=== PATIENT | male | born 1945 | race Caucasian/White ===

== ENCOUNTER → 2016-06-30 | Outpatient (CLI) | payer MEDICARE, BC | END | disposition home or self-care (01) | LOC: MW.CHFP 08:17 | PROVIDERS: ATTEND Emergency Medicine | DX: I10 Essential (primary) hypertension (principal); E11.9 Type 2 diabetes mellitus without complications; Z79.4 Long term (current) use of insulin | CPT/HCPCS: 36415; 80048; 83036; G0463 ==

== ENCOUNTER → 2016-09-26 | Outpatient (CLI) | payer MEDICARE, BC | LOC: MW.CHFP 08:00 | PROVIDERS: ATTEND Emergency Medicine | DX: NODX10 (principal) ==

== ENCOUNTER → 2016-09-27 | Outpatient (CLI) | payer MEDICARE, BC | LOC: MW.CHFP 09:56 | PROVIDERS: ATTEND Emergency Medicine | DX: E11.9 Type 2 diabetes mellitus without complications (principal); I10 Essential (primary) hypertension; Z79.4 Long term (current) use of insulin; G47.00 Insomnia, unspecified; Z96.41 Presence of insulin pump (external) (internal) | CPT/HCPCS: 36415; 80048; 83036; 99214 ==

== ENCOUNTER 2016-10-30 20:36 | Observation (INO) | payer MEDICARE, BC ==
[2016-10-30] MEDS ORDERED: Aspirin 81 MG Tab.Chew PO ONE (20:53)
[2016-10-30] MEDS ORDERED: Ketorolac 30 MG/ML SDV IVPUSH ONE (20:53)
[2016-10-30] MEDS ORDERED: Sodium Chloride 0.9% 2.5 ML Syringe FLUSH PRN ×2 (20:53)
[2016-10-30] MEDS ORDERED: Nitroglycerin 2% Oint 1 GM UD Packet TOP ONE (20:53)
[2016-10-30] MEDS ORDERED: Famotidine 20 MG/2 ML SDV IVPUSH ONE (20:53)
[2016-10-30] MEDS ORDERED: Alum Hydrox/Mag Hydrox/Simeth 15 ML, Metoclopramide 5 MG, Lidocaine 2% 5 ML PO ONE ×3 (20:53)
[2016-10-30] MEDS ORDERED: Nitroglycerin 0.4 MG Tab.SL SL ONE (20:53)
[2016-10-30] MEDS ORDERED: Sodium Chloride 0.9% 10 ML Syringe FLUSH PRN (20:53)
--- NOTE | 2016-10-30 21:39 | EDM.PDOC ---
ED HPI GENERAL MEDICAL PROBLEM - General Chief Complaint: Cardiovascular Problem Stated Complaint: CHEST PAIN Time Seen by Provider: 10/30/16 20:45 Source of Information: Reports: Patient, Family History Limitations: Reports: No Limitations - History of Present Illness INITIAL COMMENTS - FREE TEXT/NARRATIVE: History of present illness: 71-year-old male presenting with complaints of chest pain and pressure. Patient indicates it started this afternoon he was uncertain of the time but got progressively worse when his made him come in. Review of systems: As per history of present illness and below otherwise all systems reviewed and negative. Past medical history: As per history of present illness and as reviewed below otherwise noncontributory. Surgical history: As per history of present illness and as reviewed below otherwise noncontributory. Social history: No reported history of drug or alcohol abuse. Family history: As per history of present illness and as reviewed below otherwise noncontributory. Physical exam: HEENT: Atraumatic, normocephalic, pupils reactive, negative for conjunctival pallor or scleral icterus, mucous membranes moist, throat clear, neck supple, nontender, trachea midline. Lungs: Clear to auscultation, breath sounds equal bilaterally, chest nontender. Heart: S1S2, regular, negative for clicks, rubs, or JVD. Abdomen: Soft, nondistended, nontender. Negative for masses or hepatosplenomegaly. Negative for costovertebral tenderness. Pelvis: Stable nontender. Genitourinary: Deferred. Rectal: Deferred. Extremities: Atraumatic, negative for cords or calf pain. Neurovascular unremarkable. Neuro: Awake, alert, oriented. Cranial nerves II through XII unremarkable. Cerebellum unremarkable. Motor and sensory unremarkable throughout. Exam nonfocal. Global assessment is benign save the subjective complaint of chest pain as noted in the history of present illness Patient indicated that he had more pressure than the pain and he was hypertensive on arrival Nitroglycerin 0.5" of NTG paste Diagnostics: [CBC, CMP, lipase, amylase, troponin] Therapeutics: [IV fluid, nitroglycerin] Impression: [Chest pain] Plan: [Admit for OBS with tele] Definitive disposition and diagnosis as appropriate pending reevaluation and review of above. Left Chest Pain Score (Numeric/FACES): 4 - Related Data Allergies Allergy/AdvReac Type Severity Reaction Status Date / Time No Known Allergies Allergy Verified 10/30/16 21:04 Home Meds: Home Meds Clopidogrel Bisulfate [Clopidogrel] 75 mg PO DAILY 05/13/14 [History] Metoprolol Tartrate [Lopressor] 50 mg PO BID 05/13/14 [History] Pramipexole [Mirapex] 0.25 mg PO BEDTIME 05/13/14 [History] Trandolapril [Mavik] 4 mg PO DAILY 05/13/14 [History] atorvaSTATin [Lipitor] 40 mg PO DAILY 05/13/14 [History] Insulin Lispro [HumaLOG] 50 - 60 unit SUBCUT QIDACANDBED 05/01/15 [History] Isosorbide Mononitrate [Imdur] 30 mg PO DAILY 05/01/15 [History] Subcutaneous Insulin Pump [Insulin Pump] 1 each MC 05/01/15 [History] Furosemide [Lasix] 20 mg PO DAILY 7 Days 01/23/16 [Rx] Potassium Chloride 10 meq PO DAILY 7 Days 01/23/16 [Rx] Past Medical History HEENT History: Reports: None Cardiovascular History: Reports: CAD, High Cholesterol, Hypertension, [place] Respiratory History: Reports: None Gastrointestinal History: Reports: None Genitourinary History: Reports: None Musculoskeletal History: Reports: None Neurological History: Reports: CVA Psychiatric History: Reports: None Endocrine/Metabolic History: Reports: Diabetes, Type II Hematologic History: Reports: None Immunologic History: Reports: None Oncologic (Cancer) History: Reports: None Dermatologic History: Reports: None - Infectious Disease History Infectious Disease History: Reports: Chicken Pox, Measles, Mumps - Past Surgical History Head Surgeries/Procedures: Reports: None Cardiovascular Surgical History: Reports: Coronary Artery Bypass, Coronary Artery Stent Social & Family History - Family History Family Medical History: Unobtainable - Tobacco Use Smoking Status *Q: Never Smoker Years of Tobacco use: 20 Second Hand Smoke Exposure: No - Alcohol Use Days Per Week of Alcohol Use: 0 - Recreational Drug Use Recreational Drug Use: No ED ROS GENERAL - Review of Systems Review Of Systems: See Below (See history of present illness) ED EXAM, GENERAL - Physical Exam Exam: See Below (See history of present illness) Course - Vital Signs Last Recorded V/S: Last Vital Signs Temp 36.5 C 10/30/16 21:01 Pulse 67 10/30/16 21:27 Resp 17 10/30/16 21:27 BP 145/68 H 10/30/16 21:27 Pulse Ox 100 10/30/16 21:27 - Orders/Labs/Meds Orders: Active Orders 24 hr Category Date Time Status Cardiac Monitoring [RC] . DIRECTED Care 10/30/16 20:53 Active EKG Documentation Completion [RC] STAT Care 10/30/16 20:53 Active Chest 2V [CR] Stat Exams 10/30/16 20:53 Ordered Sodium Chloride 0.9% [Saline Flush] Med 10/30/16 20:53 Active 10 ml FLUSH ASDIRECTED PRN Sodium Chloride 0.9% [Saline Flush] Med 10/30/16 20:53 Active 2.5 ml FLUSH ASDIRECTED PRN Sodium Chloride 0.9% [Saline Flush] Med 10/30/16 20:53 Active 2.5 ml FLUSH ASDIRECTED PRN Saline Lock Insert [OM.PC] Stat Oth 10/30/16 20:53 Ordered Medication Orders Sodium Chloride (Saline Flush) 2.5 ml FLUSH ASDIRECTED PRN PRN Reason: Keep Vein Open Last Admin: 10/30/16 21:19 Dose: 2.5 ml Sodium Chloride (Saline Flush) 10 ml FLUSH ASDIRECTED PRN PRN Reason: Keep Vein Open Last Admin: 10/30/16 21:15 Dose: 10 ml Sodium Chloride (Saline Flush) 2.5 ml FLUSH ASDIRECTED PRN PRN Reason: Keep Vein Open Last Admin: 10/30/16 21:22 Dose: 2.5 ml Labs: Laboratory Tests 10/30/16 10/30/16 10/30/16 Range/Units 20:54 20:54 20:54 WBC 6.71 (4.0-11.0) K/uL RBC 4.45 L (4.50-5.90) M/uL Hgb 14.0 (13.0-17.0) g/dL Hct 40.1 (38.0-50.0) % MCV 90.1 (80.0-98.0) fL MCH 31.5 (27.0-32.0) pg MCHC 34.9 (31.0-37.0) g/dL RDW Std Deviation 44.4 (28.0-62.0) fl RDW Coeff of Thuy 13 (11.0-15.0) % Plt Count 154 (150-400) K/uL MPV 11.10 (7.40-12.00) fL Neut % (Auto) 74.1 (48.0-80.0) % Lymph % (Auto) 15.4 L (16.0-40.0) % [place] % (Auto) 8.0 (0.0-15.0) % Eos % (Auto) 2.1 (0.0-7.0) % Baso % (Auto) 0.4 (0.0-1.5) % Neut # (Auto) 5.0 (1.4-5.7) K/uL Lymph # (Auto) 1.0 (0.6-2.4) K/uL [place] # (Auto) 0.5 (0.0-0.8) K/uL Eos # (Auto) 0.1 (0.0-0.7) K/uL Baso # (Auto) 0.0 (0.0-0.1) K/uL Nucleated RBC % 0.0 /100WBC Nucleated RBCs # 0 K/uL Sodium 138 (136-146) mmol/L Potassium 4.4 (3.5-5.1) mmol/L Chloride 106 (98-110) mmol/L Carbon Dioxide 23 (21-31) mmol/L BUN 26 H (6.0-23.0) mg/dL Creatinine 1.5 (0.6-1.5) mg/dL Est Cr Clr Drug Dosing 36.88 mL/min Estimated GFR (MDRD) 46.3 ml/min Glucose 85 (60-110) mg/dL Calcium 9.3 (8.8-10.8) mg/dL Total Bilirubin 0.3 (0.1-1.5) mg/dL AST 16 (5-40) IU/L ALT 18 (8-54) IU/L Alkaline Phosphatase 61 (40-150) Troponin I < 0.10 (0.0-0.29) NG/ML Total Protein 6.8 (6.0-8.0) g/dL Albumin 4.1 (3.4-4.8) g/dL Globulin 2.7 (2.0-3.5) g/dL Albumin/Globulin Ratio 1.5 (1.3-2.8) Amylase 25 (10-90) U/L Lipase 22 (7-80) U/L Meds: Medications Generic Name Dose Route Start Last Admin Trade Name Freq PRN Reason Stop Dose Admin Sodium Chloride 2.5 ml 10/30/16 20:53 10/30/16 21:19 Saline Flush FLUSH 2.5 ml ASDIRECTED PRN Administration Keep Vein Open Sodium Chloride 10 ml 10/30/16 20:53 10/30/16 21:15 Saline Flush FLUSH 10 ml ASDIRECTED PRN Administration Keep Vein Open Sodium Chloride 2.5 ml 10/30/16 20:53 10/30/16 21:22 Saline Flush FLUSH 2.5 ml ASDIRECTED PRN Administration Keep Vein Open Discontinued Medications Generic Name Dose Route Start Last Admin Trade Name Chaitanyaq PRN Reason Stop Dose Admin Aspirin 324 mg 10/30/16 20:53 10/30/16 21:15 Aspirin PO 10/30/16 20:54 324 mg ONETIME ONE Administration Al Hydroxide/Mg Hydroxide 15 0 ml 10/30/16 20:53 10/30/16 21:16 ml/ Metoclopramide HCl 5 mg/ PO 10/30/16 20:54 25 each Lidocaine HCl 5 ml ONETIME ONE Administration Famotidine 20 mg 10/30/16 20:53 10/30/16 21:19 Pepcid IVPUSH 10/30/16 20:54 20 mg ONETIME ONE Administration Ketorolac Tromethamine 30 mg 10/30/16 20:53 10/30/16 21:19 Toradol IVPUSH 10/30/16 20:54 30 mg ONETIME ONE Administration Nitroglycerin 0.5 gm 10/30/16 20:53 10/30/16 21:26 Nitro-Bid 2% TOP 10/30/16 20:54 0.5 gm ONETIME ONE Administration Nitroglycerin 0.4 mg 10/30/16 20:53 Nitrostat SL 10/30/16 20:54 ONETIME ONE Departure - Departure Time of Disposition: 21:51 Disposition: Refer to Observation Condition: good Clinical Impression: Chest pain - My Orders Last 24 Hours: My Active Orders 10/30/16 20:53 Cardiac Monitoring [RC] . DIRECTED EKG Documentation Completion [RC] STAT Chest 2V [CR] Stat Sodium Chloride 0.9% [Saline Flush] 10 ml FLUSH ASDIRECTED PRN Sodium Chloride 0.9% [Saline Flush] 2.5 ml FLUSH ASDIRECTED PRN Sodium Chloride 0.9% [Saline Flush] 2.5 ml FLUSH ASDIRECTED PRN Saline Lock Insert [OM.PC] Stat - Assessment/Plan Last 24 Hours: My Active Orders 10/30/16 20:53 Cardiac Monitoring [RC] . DIRECTED EKG Documentation Completion [RC] STAT Chest 2V [CR] Stat Sodium Chloride 0.9% [Saline Flush] 10 ml FLUSH ASDIRECTED PRN Sodium Chloride 0.9% [Saline Flush] 2.5 ml FLUSH ASDIRECTED PRN Sodium Chloride 0.9% [Saline Flush] 2.5 ml FLUSH ASDIRECTED PRN Saline Lock Insert [OM.PC] Stat
--- NOTE | 2016-10-30 22:41 | PCM.HP ---
H&P History of Present Illness - History of Present Illness Initial Comments - Free Text/Narative: 71 yo male with pmh of CAD and DM who presents with one day history of chest pain. He reports substernal chest pressure that is associated with shortness of breath. He was evaluated in the ED with EKG and cardiac enzymes which were negative for signs of ischemia. BP was noted to be 201/87. He was given GI cocktail and nitropaste with resolution of chest pain. Left Chest Pain Score (Numeric/FACES): 4 - Related Data Allergies/Adverse Reactions: Allergies Allergy/AdvReac Type Severity Reaction Status Date / Time No Known Allergies Allergy Verified 10/30/16 21:04 Home Medications: Home Meds Clopidogrel Bisulfate [Clopidogrel] 75 mg PO DAILY 05/13/14 [History] Metoprolol Tartrate [Lopressor] 50 mg PO BID 05/13/14 [History] Pramipexole [Mirapex] 0.25 mg PO BEDTIME 05/13/14 [History] Trandolapril [Mavik] 4 mg PO DAILY 05/13/14 [History] atorvaSTATin [Lipitor] 40 mg PO DAILY 05/13/14 [History] Insulin Lispro [HumaLOG] 50 - 60 unit SUBCUT QIDACANDBED 05/01/15 [History] Isosorbide Mononitrate [Imdur] 30 mg PO DAILY 05/01/15 [History] Subcutaneous Insulin Pump [Insulin Pump] 1 each MC 05/01/15 [History] Furosemide [Lasix] 20 mg PO DAILY 7 Days 01/23/16 [Rx] Potassium Chloride 10 meq PO DAILY 7 Days 01/23/16 [Rx] Past Medical History HEENT History: Reports: None Cardiovascular History: Reports: CAD, High Cholesterol, Hypertension, [place] Respiratory History: Reports: None Gastrointestinal History: Reports: None Genitourinary History: Reports: None Musculoskeletal History: Reports: None Neurological History: Reports: CVA Psychiatric History: Reports: None Endocrine/Metabolic History: Reports: Diabetes, Type II Hematologic History: Reports: None Immunologic History: Reports: None Oncologic (Cancer) History: Reports: None Dermatologic History: Reports: None - Infectious Disease History Infectious Disease History: Reports: Chicken Pox, Measles, Mumps - Past Surgical History Head Surgeries/Procedures: Reports: None Cardiovascular Surgical History: Reports: Coronary Artery Bypass, Coronary Artery Stent Social & Family History - Family History Family Medical History: Unobtainable - Tobacco Use Smoking Status *Q: Never Smoker Years of Tobacco use: 20 Second Hand Smoke Exposure: No - Alcohol Use Days Per Week of Alcohol Use: 0 - Recreational Drug Use Recreational Drug Use: No H&P Review of Systems - Review of Systems: Review Of Systems: See Below General: Reports: No Symptoms HEENT: Reports: No Symptoms Pulmonary: Reports: No Symptoms Cardiovascular: Reports: No Symptoms Gastrointestinal: Reports: No Symptoms Genitourinary: Reports: No Symptoms Musculoskeletal: Reports: No Symptoms Skin: Reports: No Symptoms Psychiatric: Reports: No Symptoms Neurological: Reports: No Symptoms Hematologic/Lymphatic: Reports: No Symptoms Immunologic: Reports: No Symptoms Exam - Exam Exam: See Below - Vital Signs Vital Signs: Last Vital Signs Temp 36.5 C 10/30/16 21:01 Pulse 67 10/30/16 21:27 Resp 17 10/30/16 21:27 BP 145/68 H 10/30/16 21:40 Pulse Ox 100 10/30/16 21:27 Weight: 83.2 kg - Exam General: Alert, Oriented, 4 HEENT: Mucosa Moist & [place] Neck: No: JVD Lungs: Clear to Auscultation, Normal Respiratory Effort Cardiovascular: Regular Rate, Regular Rhythm Abdomen: Soft. No: Tenderness Extremities: Normal Inspection Skin: Warm, Dry, Intact - Patient Data Result Diagrams: 10/30/16 20:54 10/30/16 20:54 *Q Meaningful Use (ADM) - VTE *Q VTE Criteria *Q: - Stroke *Q Stroke Criteria *Q: - AMI *Q AMI Criteria *Q: Problem List Initiated/Reviewed/Updated: Yes Orders Last 24hrs: Active Orders 24 hr Category Date Time Status Antiembolic Devices [RC] PER UNIT ROUTINE Care 10/30/16 22:38 Ordered Blood Glucose Check, Bedside [RC] QIDACANDBED Care 10/30/16 22:37 Ordered Intake and Output [RC] QSHIFT Care 10/30/16 22:37 Ordered Oxygen Therapy [RC] PRN Care 10/30/16 22:37 Ordered Up ad Sarah [RC] ASDIRECTED Care 10/30/16 22:37 Ordered VTE/DVT Education [RC] PER UNIT ROUTINE Care 10/30/16 22:37 Ordered Vital Signs [RC] Q4H Care 10/30/16 22:37 Ordered [place] [employer] Diet [DIET] Diet 10/30/16 Breakfast Ordered TROPONIN I [CHEM] Q6H Lab 10/31/16 03:00 Ordered TROPONIN I [CHEM] Q6H Lab 10/31/16 09:00 Ordered Clopidogrel [Plavix] Med 10/31/16 09:00 Ordered 75 mg PO DAILY Enoxaparin [Lovenox] Med 10/31/16 09:00 Ordered 40 mg SUBCUT DAILY Furosemide [Lasix] Med 10/31/16 09:00 Ordered 20 mg PO DAILY Isosorbide Mononitrate [Imdur] Med 10/31/16 09:00 Ordered 30 mg PO DAILY Metoprolol Tartrate [Lopressor] Med 10/31/16 09:00 Ordered 50 mg PO BID Pramipexole [Mirapex] Med 10/31/16 21:00 Ordered 0.25 mg PO BEDTIME Subcutaneous Insulin Pump [Insulin Pump] Med 10/30/16 22:45 Ordered 1 each ASDIRECTED Trandolapril [Mavik] Med 10/31/16 09:00 Ordered 4 mg PO DAILY atorvaSTATin [Lipitor] Med 10/31/16 09:00 Ordered 40 mg PO DAILY Sequential Compression Device [OM.PC] Per Unit Routine Oth 10/30/16 22:37 Ordered Resuscitation Status Routine Resus Stat 10/30/16 22:37 Ordered Medication Orders Atorvastatin Calcium (Lipitor) 40 mg PO DAILY ISHMAEL Clopidogrel Bisulfate (Plavix) 75 mg PO DAILY ISHMAEL Furosemide (Lasix) 20 mg PO DAILY ISHMAEL Isosorbide Mononitrate (Imdur) 30 mg PO DAILY ISHMAEL Metoprolol Tartrate (Lopressor) 50 mg PO BID ISHMAEL Non-Formulary Medication (Trandolapril [Mavik]) 4 mg PO DAILY ISHMAEL Non-Formulary Medication (Subcutaneous Insulin Pump [Insulin Pump]) 1 each ASDIRECTED ISHMAEL Pramipexole Dihydrochloride (Mirapex) 0.25 mg PO BEDTIME ISHMAEL Sodium Chloride (Saline Flush) 2.5 ml FLUSH ASDIRECTED PRN PRN Reason: Keep Vein Open Last Admin: 10/30/16 21:19 Dose: 2.5 ml Sodium Chloride (Saline Flush) 10 ml FLUSH ASDIRECTED PRN PRN Reason: Keep Vein Open Last Admin: 10/30/16 21:15 Dose: 10 ml Sodium Chloride (Saline Flush) 2.5 ml FLUSH ASDIRECTED PRN PRN Reason: Keep Vein Open Last Admin: 10/30/16 21:22 Dose: 2.5 ml Assessment/Plan Comment:: 71 yo male who presents with chest pain. He was ruled out for acute coronary syndorme with serial negative cardiac enzymes He had no events on telemetry overnight. His imdur was increased to 60mg daily. He was discharged home to follow up with Dr. Trevizo.
[2016-10-30] MEDS ORDERED: SUBCUTANEOUS INSULIN PUMP MC SCH (22:45)
[2016-10-31] MEDS ORDERED: Enoxaparin 40 MG/0.4 ML Syringe SUBCUT SCH (09:00)
[2016-10-31] MEDS ORDERED: atorvaSTATin 40 MG Tab PO SCH (09:00)
[2016-10-31] MEDS ORDERED: Isosorbide Mononitrate 30 MG Tab.ER PO SCH (09:00)
[2016-10-31] MEDS ORDERED: TRANDOLAPRIL 4 MG PO SCH (09:00)
[2016-10-31] MEDS ORDERED: Clopidogrel 75 MG Tab PO SCH (09:00)
[2016-10-31] MEDS ORDERED: Metoprolol Tartrate 50 MG Tab PO SCH (09:00)
[2016-10-31] MEDS ORDERED: Furosemide 20 MG Tab PO SCH (09:00)
--- NOTE | 2016-10-31 11:48 | CR ---
EXAM DATE: 10/30/16 PATIENT'S AGE: 71 Patient: MONIQUE HUERTAS Facility: [place], [place] Site . Site : [id number] Study: XRay Chest [id number] 9:55:07 PM Ordering Physician: Doctor Brandt Final Report: CHEST 2 VIEWS INDICATION: Chest pain COMPARISON: 01/23/2016. IMPRESSION: Normal heart size and vascular pattern. Lungs are clear. No pneumothorax or pleural abnormality. No overall change Stable changes of previous midline sternotomy. Stable calcified nodule right lung base. Stable multiple previous healed left-sided posterior rib fractures. Coronary arterial stent is again noted on the lateral view. Dictated by Raghavendra Vallejo MD @ Oct 30 2016 10:03PM (Electronic Signature) Report Signed by Proxy. ANABELLE
[2016-10-31 12:05] VITALS: BP 146/72
[2016-10-31] MEDS ORDERED: Pramipexole 0.25 MG Tab PO SCH (21:00)
== END 2016-10-31 13:54 | disposition home or self-care (01) ==
LOC: MW.ED 20:36 → MW.MS 22:15
PROVIDERS: ADMIT Internal Medicine; ATTEND Internal Medicine
DX: R07.89 Other chest pain (principal); I25.10 Atherosclerotic heart disease of native coronary artery without angina pectoris; E11.9 Type 2 diabetes mellitus without complications; I10 Essential (primary) hypertension; I25.2 Old myocardial infarction; E78.00 Pure hypercholesterolemia, unspecified; Z79.4 Long term (current) use of insulin; Z79.02 Long term (current) use of antithrombotics/antiplatelets; Z79.899 Other long term (current) drug therapy; Z86.73 Personal history of transient ischemic attack (TIA), and cerebral infarction without residual deficits; Z95.1 Presence of aortocoronary bypass graft; Z95.5 Presence of coronary angioplasty implant and graft
CPT/HCPCS: 71020; 80053; 82150; 82962; 83690; 84484; 85025; 93005; 96372; 96374; 96375; 99285; A9270; G0378; J1650; J1885

== ENCOUNTER 2017-05-01 01:24 | Observation (INO) | payer MEDICARE, BC ==
[2017-05-01] MEDS ORDERED: Sodium Chloride 0.9% 10 ML Syringe FLUSH PRN (01:43)
[2017-05-01] MEDS ORDERED: Sodium Chloride 0.9% 2.5 ML Syringe FLUSH PRN (01:43)
--- NOTE | 2017-05-01 01:53 | EDM.PDOC ---
ED HPI GENERAL MEDICAL PROBLEM - General Chief Complaint: Diabetic Complaint Stated Complaint: AMBULANCE Time Seen by Provider: 05/01/17 01:29 - History of Present Illness INITIAL COMMENTS - FREE TEXT/NARRATIVE: HISTORY AND PHYSICAL: History of present illness: Patient is a 72-year-old male with a history of insulin dependent diabetes for which she is on insulin pump, hypercholesterolemia hypertension and a CABG who follows with Dr. Trevizo in our primary care clinic as well as with our sql ssis developer; he presents via EMS after his found him on the living room floor and he was noted to have a low blood sugar. The story is very confusing as the patient says that over the last few weeks his blood sugar has been running on the high side and he has worked with the educator to adjust his insulin via insulin pump. He tells me that he took his blood sugar last according to his pump at 5 PM and last gave himself insulin at 5 PM, almost 9 hours ago. The says that at 10:30 she was going to bed and he was given a check his blood sugar and be right behind but she fell asleep and when she woke up she noted that the patient was on the floor in the living room. EMS was called and his blood sugar at that time on their arrival was 45. He was given D50 via IV and his blood sugar went up to 224 and the patient was more alert and oriented. The patient tells me that he does not recall checking his blood sugar before his went to bed or after and he is not even sure how he got into the living room. It is unclear to me exactly how long he has been on the floor. The patient currently in the ED denies any systemic complaints of fever chills cough chest pain or shortness of breath has no head neck or back pain no extremity complaints no abdominal pain and has had no nausea or vomiting. He isn 't passing his urine normally and does not have any diarrhea or bowel movement issues. When asked the patient to query insulin pump he does confirm that the last time he gave himself a bolus of insulin was at 5 PM. He seems to struggle with trying to figure out how to get that information and also struggles with seeing the insulin home and the reading on it. Patient's Accu-Chek on arrival here was 120 which is a 50% drop from when EMS rechecked it after the D50. According to the patient is a basilar rate adjust throughout the day increasing slowly and he boluses himself depending on his blood sugars throughout the day. On my discussion with this patient it seems unclear of his ability to adjust his insulin appropriately and his and him are not the best historians regarding his diabetic care. Review of systems: As per history of present illness and below otherwise all systems reviewed and negative. Past medical history: As per history of present illness and as reviewed below otherwise noncontributory. Surgical history: As per history of present illness and as reviewed below otherwise noncontributory. Social history: No reported history of drug or alcohol abuse. Family history: As per history of present illness and as reviewed below otherwise noncontributory. Physical exam: General: Well-developed well-nourished man who is nontoxic and speaking clearly and easily in the ED. The muscle extremities and vital signs on a by me HEENT: Atraumatic except there is a small superficial abrasion at the top of the patient's scalp that any palpable bony deformities or gross defects , normocephalic, pupils reactive, negative for conjunctival pallor or scleral icterus, mucous membranes moist, throat clear, neck supple, nontender, trachea midline. Lungs: Clear to auscultation, breath sounds equal bilaterally, chest nontender. Heart: S1S2, regular rate and rhythm no overt murmurs Abdomen: Soft, nondistended, nontender. Negative for masses or hepatosplenomegaly. Negative for costovertebral tenderness. insulin pump is seen at the left of the umbilicus on the abdomen Pelvis: Stable nontender. Genitourinary: Deferred. Rectal: Deferred. Extremities: Atraumatic, negative for cords or calf pain. Neurovascular unremarkable. patient has full range of motion without any defects or deficits other no palpable bony deformities or soft tissue swelling is appreciated Neuro: Awake, alert, oriented. Cranial nerves II through XII unremarkable. Cerebellum unremarkable. Motor and sensory unremarkable throughout. Exam nonfocal. back: There are no midline step-offs in his defects of the thoracic or lumbar spine no soft tissue injuries are appreciated and no posterior rib or posterior pelvis tenderness. Skin: There is no evidence of diaphoresis rashes or lesions and turgor is normal Diagnostics: EKG CBC CMP UA hemoglobin A1c INR troponin CT scan of the head chest x-ray [employer]: IV O2 monitor I requested the patient shut off his insulin pump while he is here in the department Repeat Accu-Chek was 83 despite the patient's insulin pump being off. We will give him something to drink and at 03 20 3 AM I spoke with Dr. Nelson our hospitalist who agrees with observation admission for syncope and reevaluation of his diabetic management as this is the likely precipitant of his syncopal event. Throughout the course of the patient's stay in the ED when I have asked him about his diabetic adjustments with his insulin pump it seems to be unclear what the sql ssis developer and him have been doing. Impression: Syncope with hypoglycemia, rule out mal-dosing of insulin Definitive disposition and diagnosis as appropriate pending reevaluation and review of above. - Related Data Allergies Allergy/AdvReac Type Severity Reaction Status Date / Time No Known Allergies Allergy Verified 10/30/16 21:04 Home Meds: Home Meds Clopidogrel Bisulfate [Clopidogrel] 75 mg PO DAILY 05/13/14 [History] Metoprolol Tartrate [Lopressor] 50 mg PO BID 05/13/14 [History] Pramipexole [Mirapex] 0.25 mg PO BEDTIME 05/13/14 [History] Trandolapril [Mavik] 4 mg PO DAILY 05/13/14 [History] atorvaSTATin [Lipitor] 40 mg PO DAILY 05/13/14 [History] Insulin Lispro [HumaLOG] 50 - 60 unit SUBCUT QIDACANDBED 05/01/15 [History] Subcutaneous Insulin Pump [Insulin Pump] 1 each MC ASDIRECTED 05/01/15 [History] Isosorbide Mononitrate [Imdur] 60 mg PO DAILY #30 tab.er 10/31/16 [Rx] Past Medical History HEENT History: Reports: None Cardiovascular History: Reports: CAD, High Cholesterol, Hypertension, HI Respiratory History: Reports: None Gastrointestinal History: Reports: None Genitourinary History: Reports: None Musculoskeletal History: Reports: None Neurological History: Reports: CVA Psychiatric History: Reports: None Endocrine/Metabolic History: Reports: Diabetes, Type II Hematologic History: Reports: None Immunologic History: Reports: None Oncologic (Cancer) History: Reports: None Dermatologic History: Reports: None - Infectious Disease History Infectious Disease History: Reports: Chicken Pox, Measles, Mumps - Past Surgical History Head Surgeries/Procedures: Reports: None Cardiovascular Surgical History: Reports: Coronary Artery Bypass, Coronary Artery Stent Social & Family History - Family History Family Medical History: Unobtainable - Tobacco Use Smoking Status *Q: Never Smoker Years of Tobacco use: 20 Second Hand Smoke Exposure: No - Caffeine Use Caffeine Use: Reports: Coffee - Alcohol Use Days Per Week of Alcohol Use: 0 - Recreational Drug Use Recreational Drug Use: No ED ROS GENERAL - Review of Systems Review Of Systems: ROS reveals no pertinent complaints other than HPI. ED EXAM GENERAL NO PERIP PULSE - Physical Exam Exam: See Below (See dictation) Course - Vital Signs Last Recorded V/S: Last Vital Signs Temp 35.5 C 05/01/17 01:33 Pulse 64 05/01/17 03:11 Resp 12 05/01/17 03:11 BP 155/76 H 05/01/17 03:11 Pulse Ox 94 L 05/01/17 03:11 - Orders/Labs/Meds Orders: Active Orders 24 hr Category Date Time Status Blood Glucose Check, Bedside [RC] ONETIME Care 05/01/17 01:42 Active Cardiac Monitoring [RC] . DIRECTED Care 05/01/17 01:42 Active Communication Order [RC] STAT Care 05/01/17 01:43 Active EKG Documentation Completion [RC] STAT Care 05/01/17 01:42 Active Oxygen Therapy, ED [RC] ASDIRECTED Care 05/01/17 01:41 Active Pulse Oximetry [RC] ASDIRECTED Care 05/01/17 01:42 Active Chest 1V Frontal [CR] Stat Exams 05/01/17 01:43 Taken Head wo Cont [CT] Stat Exams 05/01/17 01:43 Taken Sodium Chloride 0.9% [Saline Flush] Med 05/01/17 01:43 Active 10 ml FLUSH ASDIRECTED PRN Sodium Chloride 0.9% [Saline Flush] Med 05/01/17 01:43 Active 2.5 ml FLUSH ASDIRECTED PRN Saline Lock Insert [OM.PC] Stat Oth 05/01/17 01:41 Ordered Medication Orders Sodium Chloride (Saline Flush) 10 ml FLUSH ASDIRECTED PRN PRN Reason: Keep Vein Open Sodium Chloride (Saline Flush) 2.5 ml FLUSH ASDIRECTED PRN PRN Reason: Keep Vein Open Labs: Laboratory Tests 05/01/17 05/01/17 05/01/17 Range/Units 01:30 01:30 01:30 WBC 8.88 (4.0-11.0) K/uL RBC 4.75 (4.50-5.90) M/uL Hgb 15.1 (13.0-17.0) g/dL Hct 49.9 (38.0-50.0) % MCV 105.1 H (80.0-98.0) fL MCH 31.8 (27.0-32.0) pg MCHC 30.3 L (31.0-37.0) g/dL RDW Std Deviation 54.8 (28.0-62.0) fl RDW Coeff of Thuy 14 (11.0-15.0) % Plt Count 110 L (150-400) K/uL MPV 12.80 H (7.40-12.00) fL Neut % (Auto) 86.2 H (48.0-80.0) % Lymph % (Auto) 7.9 L (16.0-40.0) % Larue % (Auto) 5.6 (0.0-15.0) % Eos % (Auto) 0.2 (0.0-7.0) % Baso % (Auto) 0.1 (0.0-1.5) % Neut # (Auto) 7.7 H (1.4-5.7) K/uL Lymph # (Auto) 0.7 (0.6-2.4) K/uL Larue # (Auto) 0.5 (0.0-0.8) K/uL Eos # (Auto) 0.0 (0.0-0.7) K/uL Baso # (Auto) 0.0 (0.0-0.1) K/uL Nucleated RBC % 0.0 /100WBC Nucleated RBCs # 0 K/uL INR 1.02 (0.86-1.11) Sodium 136 (136-146) mmol/L Potassium 3.7 (3.5-5.1) mmol/L Chloride 102 (98-110) mmol/L Carbon Dioxide 23 (21-31) mmol/L BUN 19 (6.0-23.0) mg/dL Creatinine 1.4 (0.6-1.5) mg/dL Est Cr Clr Drug Dosing 38.95 mL/min Estimated GFR (MDRD) 50.0 ml/min Glucose 117 H (60-110) mg/dL POC Glucose (60-110) mg/dL Hemoglobin A1c (0.0-6.0) % Calcium 9.7 (8.8-10.8) mg/dL Total Bilirubin 0.3 (0.1-1.5) mg/dL AST 17 (5-40) IU/L ALT 16 (8-54) IU/L Alkaline Phosphatase 60 (40-150) Creatine Kinase (9-236) IU/L Troponin I < 0.10 (0.0-0.29) NG/ML Total Protein 7.6 (6.0-8.0) g/dL Albumin 4.3 (3.4-4.8) g/dL Globulin 3.3 (2.0-3.5) g/dL Albumin/Globulin Ratio 1.3 (1.3-2.8) Urine Color Urine Appearance Urine pH (5.0-8.0) Ur Specific Kelliher (1.001-1.035) Urine Protein (NEGATIVE) mg/dL Urine Glucose (UA) (NEGATIVE) mg/dL Urine Ketones (NEGATIVE) mg/dL Urine Occult Blood (NEGATIVE) Urine Nitrite (NEGATIVE) Urine Bilirubin (NEGATIVE) Urine Urobilinogen (<2.0) EU/dL Ur Leukocyte Esterase (NEGATIVE) Urine RBC (0-2/HPF) Urine WBC (0-5/HPF) Ur Epithelial Cells (NONE-FEW) Urine Bacteria (NEGATIVE) 05/01/17 05/01/17 05/01/17 Range/Units 01:30 01:30 01:55 WBC (4.0-11.0) K/uL RBC (4.50-5.90) M/uL Hgb (13.0-17.0) g/dL Hct (38.0-50.0) % MCV (80.0-98.0) fL MCH (27.0-32.0) pg MCHC (31.0-37.0) g/dL RDW Std Deviation (28.0-62.0) fl RDW Coeff of Thuy (11.0-15.0) % Plt Count (150-400) K/uL MPV (7.40-12.00) fL Neut % (Auto) (48.0-80.0) % Lymph % (Auto) (16.0-40.0) % Larue % (Auto) (0.0-15.0) % Eos % (Auto) (0.0-7.0) % Baso % (Auto) (0.0-1.5) % Neut # (Auto) (1.4-5.7) K/uL Lymph # (Auto) (0.6-2.4) K/uL Larue # (Auto) (0.0-0.8) K/uL Eos # (Auto) (0.0-0.7) K/uL Baso # (Auto) (0.0-0.1) K/uL Nucleated RBC % /100WBC Nucleated RBCs # K/uL INR (0.86-1.11) Sodium (136-146) mmol/L Potassium (3.5-5.1) mmol/L Chloride (98-110) mmol/L Carbon Dioxide (21-31) mmol/L BUN (6.0-23.0) mg/dL Creatinine (0.6-1.5) mg/dL Est Cr Clr Drug Dosing mL/min Estimated GFR (MDRD) ml/min Glucose (60-110) mg/dL POC Glucose (60-110) mg/dL Hemoglobin A1c 8.7 H (0.0-6.0) % Calcium (8.8-10.8) mg/dL Total Bilirubin (0.1-1.5) mg/dL AST (5-40) IU/L ALT (8-54) IU/L Alkaline Phosphatase (40-150) Creatine Kinase 113 (9-236) IU/L Troponin I (0.0-0.29) NG/ML Total Protein (6.0-8.0) g/dL Albumin (3.4-4.8) g/dL Globulin (2.0-3.5) g/dL Albumin/Globulin Ratio (1.3-2.8) Urine Color YELLOW Urine Appearance CLEAR Urine pH 6.0 (5.0-8.0) Ur Specific Kelliher 1.015 (1.001-1.035) Urine Protein 30 (NEGATIVE) mg/dL Urine Glucose (UA) 100 H (NEGATIVE) mg/dL Urine Ketones NEGATIVE (NEGATIVE) mg/dL Urine Occult Blood TRACE-LYSED (NEGATIVE) Urine Nitrite NEGATIVE (NEGATIVE) Urine Bilirubin NEGATIVE (NEGATIVE) Urine Urobilinogen 0.2 (<2.0) EU/dL Ur Leukocyte Esterase NEGATIVE (NEGATIVE) Urine RBC 0-1 (0-2/HPF) Urine WBC NONE SEEN (0-5/HPF) Ur Epithelial Cells RARE (NONE-FEW) Urine Bacteria RARE (NEGATIVE) 05/01/17 Range/Units 03:10 WBC (4.0-11.0) K/uL RBC (4.50-5.90) M/uL Hgb (13.0-17.0) g/dL Hct (38.0-50.0) % MCV (80.0-98.0) fL MCH (27.0-32.0) pg MCHC (31.0-37.0) g/dL RDW Std Deviation (28.0-62.0) fl RDW Coeff of Thuy (11.0-15.0) % Plt Count (150-400) K/uL MPV (7.40-12.00) fL Neut % (Auto) (48.0-80.0) % Lymph % (Auto) (16.0-40.0) % Larue % (Auto) (0.0-15.0) % Eos % (Auto) (0.0-7.0) % Baso % (Auto) (0.0-1.5) % Neut # (Auto) (1.4-5.7) K/uL Lymph # (Auto) (0.6-2.4) K/uL Larue # (Auto) (0.0-0.8) K/uL Eos # (Auto) (0.0-0.7) K/uL Baso # (Auto) (0.0-0.1) K/uL Nucleated RBC % /100WBC Nucleated RBCs # K/uL INR (0.86-1.11) Sodium (136-146) mmol/L Potassium (3.5-5.1) mmol/L Chloride (98-110) mmol/L Carbon Dioxide (21-31) mmol/L BUN (6.0-23.0) mg/dL Creatinine (0.6-1.5) mg/dL Est Cr Clr Drug Dosing mL/min Estimated GFR (MDRD) ml/min Glucose (60-110) mg/dL POC Glucose 83 (60-110) mg/dL Hemoglobin A1c (0.0-6.0) % Calcium (8.8-10.8) mg/dL Total Bilirubin (0.1-1.5) mg/dL AST (5-40) IU/L ALT (8-54) IU/L Alkaline Phosphatase (40-150) Creatine Kinase (9-236) IU/L Troponin I (0.0-0.29) NG/ML Total Protein (6.0-8.0) g/dL Albumin (3.4-4.8) g/dL Globulin (2.0-3.5) g/dL Albumin/Globulin Ratio (1.3-2.8) Urine Color Urine Appearance Urine pH (5.0-8.0) Ur Specific Kelliher (1.001-1.035) Urine Protein (NEGATIVE) mg/dL Urine Glucose (UA) (NEGATIVE) mg/dL Urine Ketones (NEGATIVE) mg/dL Urine Occult Blood (NEGATIVE) Urine Nitrite (NEGATIVE) Urine Bilirubin (NEGATIVE) Urine Urobilinogen (<2.0) EU/dL Ur Leukocyte Esterase (NEGATIVE) Urine RBC (0-2/HPF) Urine WBC (0-5/HPF) Ur Epithelial Cells (NONE-FEW) Urine Bacteria (NEGATIVE) Meds: Medications Generic Name Dose Route Start Last Admin Trade Name Freq PRN Reason Stop Dose Admin Sodium Chloride 10 ml 05/01/17 01:43 Saline Flush FLUSH ASDIRECTED PRN Keep Vein Open Sodium Chloride 2.5 ml 05/01/17 01:43 Saline Flush FLUSH ASDIRECTED PRN Keep Vein Open Departure - Departure Time of Disposition: 03:26 Disposition: Refer to Observation Condition: Good Clinical Impression: Hypoglycemia Syncope Qualifiers: Syncope type: unspecified Qualified Code(s): R55 - Syncope and collapse - Discharge Information Referrals: Jackson Trevizo MD [Primary Care Provider] - Forms: ED Department Discharge - My Orders Last 24 Hours: My Active Orders 05/01/17 01:41 Oxygen Therapy, ED [] ASDIRECTED Saline Lock Insert [OM.PC] Stat 05/01/17 01:42 Blood Glucose Check, Bedside [RC] ONETIME Cardiac Monitoring [RC] . DIRECTED EKG Documentation Completion [RC] STAT Pulse Oximetry [] ASDIRECTED 05/01/17 01:43 Communication Order [RC] STAT Chest 1V Frontal [CR] Stat Head wo Cont [CT] Stat Sodium Chloride 0.9% [Saline Flush] 10 ml FLUSH ASDIRECTED PRN Sodium Chloride 0.9% [Saline Flush] 2.5 ml FLUSH ASDIRECTED PRN - Assessment/Plan Last 24 Hours: My Active Orders 05/01/17 01:41 Oxygen Therapy, ED [RC] ASDIRECTED Saline Lock Insert [OM.PC] Stat 05/01/17 01:42 Blood Glucose Check, Bedside [RC] ONETIME Cardiac Monitoring [RC] . DIRECTED EKG Documentation Completion [RC] STAT Pulse Oximetry [RC] ASDIRECTED 05/01/17 01:43 Communication Order [RC] STAT Chest 1V Frontal [CR] Stat Head wo Cont [CT] Stat Sodium Chloride 0.9% [Saline Flush] 10 ml FLUSH ASDIRECTED PRN Sodium Chloride 0.9% [Saline Flush] 2.5 ml FLUSH ASDIRECTED PRN
[2017-05-01 02:11] LABS: CHLORIDE,CL 102 mmol/L (98-110); SODIUM,NA 136 mmol/L (136-146)
[2017-05-01] MEDS ORDERED: Insulin Aspart 100 Units/ML 3 ML Pen SUBCUT SCH (07:30)
[2017-05-01] MEDS: Metoprolol Tartrate 50 MG Tab PO SCH ×2 (08:12→08:30)
[2017-05-01] MEDS: Clopidogrel 75 MG Tab PO SCH ×2 (08:12→08:31)
[2017-05-01] MEDS: Isosorbide Mononitrate 30 MG Tab.ER PO SCH ×2 (08:13→08:32)
[2017-05-01] MEDS: atorvaSTATin 40 MG Tab PO SCH ×2 (08:13→08:31)
[2017-05-01] MEDS ORDERED: amLODIPine 5 MG Tab PO SCH ×2 (09:00→09:58)
[2017-05-01] MEDS ORDERED: ATORVASTATIN 40 MG PO SCH (09:12)
[2017-05-01] MEDS ORDERED: CLOPIDOGREL 75 MG PO SCH (09:12)
[2017-05-01] MEDS ORDERED: METOPROLOL TARTRATE 50 MG PO SCH (09:14)
[2017-05-01] MEDS ORDERED: ISOSORBIDE MONO 30 MG PO SCH (09:15)
--- NOTE | 2017-05-01 09:29 | PCM.HP ---
H&P History of Present Illness - General Date of Service: 05/01/17 Admit Problem/Dx: Admission Diagnosis/Problem Admission Diagnosis/Problem Hypoglycemia Source of Information: Patient, Family ( at bedside) History Limitations: Reports: No Limitations - History of Present Illness Initial Comments - Free Text/Narative: This 72 year old male with IDDM with pump, hypercholesterolemia, HTN, hx CABG in 2001 and "multiple" stents since then presented to the ED via EMS after his found him on the living room floor around 12:30 am. Upon EMS arrival, his BS was noted to be 45. He was given D50 and BS elevated to 224 and he was more alert and oriented. Upon interview in the ED, story was very confusing and patient uncertain about a lot of details from the evening. This morning, he is alert and reports for supper his BS was 356 or around there and by correction and carb counting, he gave himself 19.7 units of insulin. He reports he ate and then went to [employer] and worked out. He came home and watched some TV with his , played on the computer. She reportedly went to bed around 10 pm. He remembers feeling like he had a low BS or that is was getting lower, but decided to hold off on checking it. Then prior to going to bed he was going to check it and this was likely around 11pm because the show he watches was ending and it ends at 11. He remembers getting up to the kitchen and from that point he remembers nothing. His found him at 12:30 am on the living room floor, unconscious and called EMS. He reports he has been dealing with high BS and working weekly with DM educator, Michael to get his BS under more control. He reports, he may have given himself more insulin than needed at supper, 5:30 pm, but he knew he was going to eat a large meal and his BS was in the 300s. He denies URI symptoms, chest pain, SOB, abdominal pain, urinary symptoms or neurologic symptoms. This morning he is feeling much better. He denies tobacco, alcohol or recreational drug use. In the ED BS was noted to be 120 on arrival to the ED. Insulin pump remained in place at this time with basal rate. Insulin pump was removed in the ED. Repeat BS was 83, he was given something to eat and drink. No leukocytosis noted, BMP WNL. troponin negative. CXR negative and head CT negative for acute infarction, intracranial hemorrhage or mass effect. He was admitted observation for syncope likely secondary to hypoglycemic event. - Related Data Allergies/Adverse Reactions: Allergies Allergy/AdvReac Type Severity Reaction Status Date / Time No Known Allergies Allergy Verified 10/30/16 21:04 Home Medications: Home Meds Clopidogrel Bisulfate [Clopidogrel] 75 mg PO DAILY 05/13/14 [History] Metoprolol Tartrate [Lopressor] 50 mg PO BID 05/13/14 [History] Pramipexole [Mirapex] 0.25 mg PO BEDTIME 05/13/14 [History] Trandolapril [Mavik] 4 mg PO DAILY 05/13/14 [History] atorvaSTATin [Lipitor] 40 mg PO DAILY 05/13/14 [History] Insulin Lispro [HumaLOG] 50 - 60 unit SUBCUT .Q24 HRS PER PUMP 05/01/15 [History ] Subcutaneous Insulin Pump [Insulin Pump] 1 each MC ASDIRECTED 05/01/15 [History] Isosorbide Mononitrate [Imdur] 30 mg PO DAILY 05/01/17 [History] amLODIPine [Norvasc] 5 mg PO DAILY 05/01/17 [History] traZODone HCl [Trazodone HCl] 100 - 150 mg PO BEDTIME PRN 05/01/17 [History] Past Medical History HEENT History: Reports: Cataract, Macular Degeneration Cardiovascular History: Reports: CAD, High Cholesterol, Hypertension, [place] (CABG and multiple stents in place). Denies: Blood Clots/VTE/DVT Respiratory History: Reports: None. Denies: Asthma, COPD, PE Gastrointestinal History: Reports: None. Denies: GERD, GI Bleed Genitourinary History: Reports: Prostate Disorder (frequency in urination) Musculoskeletal History: Reports: Arthritis Neurological History: Reports: CVA Psychiatric History: Reports: None Endocrine/Metabolic History: Reports: Diabetes, Type II, Obesity/BMI 30+ Hematologic History: Reports: None Immunologic History: Reports: None Oncologic (Cancer) History: Reports: None Dermatologic History: Reports: None - Infectious Disease History Infectious Disease History: Reports: Chicken Pox, Measles, Mumps - Past Surgical History Head Surgeries/Procedures: Reports: None HEENT Surgical History: Reports: Cataract Surgery Cardiovascular Surgical History: Reports: Coronary Artery Bypass, Coronary Artery Stent Respiratory Surgical History: Reports: None GI Surgical History: Reports: None Male Surgical History: Reports: None Endocrine Surgical History: Reports: None Neurological Surgical History: Reports: None Musculoskeletal Surgical History: Reports: Other (See Below) Other Musculoskeletal Surgeries/Procedures:: Back Surgery Oncologic Surgical History: Reports: None Social & Family History - Family History Family Medical History: Unobtainable - Tobacco Use Smoking Status *Q: Former Smoker Years of Tobacco use: 18 Used Tobacco, but Quit: Yes Month Tobacco Last Used: 1981 Second Hand Smoke Exposure: No - Caffeine Use Caffeine Use: Reports: Coffee - Alcohol Use Days Per Week of Alcohol Use: 0 - Recreational Drug Use Recreational Drug Use: No - Living Situation & Occupation Living situation: Reports: H&P Review of Systems - Review of Systems: Review Of Systems: See Below General: Reports: No Symptoms. Denies: Fever, Chills, Malaise, Weakness HEENT: Reports: No Symptoms. Denies: Contact Lenses, Headaches, Sinus Congestion, Vertigo Pulmonary: Reports: No Symptoms. Denies: Shortness of Breath, Cough, Sputum Cardiovascular: Reports: No Symptoms. Denies: Chest Pain, Edema, Lightheadedness, Blood Pressure Problem Gastrointestinal: Reports: No Symptoms. Denies: Abdominal Pain, Black Stool, Bloody Stool, Diarrhea, Decreased Appetite, Nausea, Vomiting Genitourinary: Reports: Frequency (at baseline due to BPH). Denies: Dysuria, Burning, Pain, Urgency Musculoskeletal: Reports: No Symptoms Skin: Reports: No Symptoms. Denies: Mottled, Wound Psychiatric: Reports: No Symptoms. Denies: Confusion, Anxiety Neurological: Reports: No Symptoms. Denies: Confusion, Numbness, Paresthesia, Weakness Exam - Exam Exam: See Below - Vital Signs Vital Signs: Last Vital Signs Temp 97.4 F 05/01/17 07:40 Pulse 67 05/01/17 08:30 Resp 18 05/01/17 07:40 BP 143/58 H 05/01/17 08:32 Pulse Ox 95 05/01/17 07:40 Weight: 80.059 kg - Exam General: Alert, Oriented, Cooperative HEENT: Conjunctiva Clear, Mucosa Moist & [place], Pupils Equal Neck: Supple, Trachea Midline, Full Range of Motion Lungs: Clear to Auscultation, Normal Respiratory Effort Cardiovascular: Regular Rate, Regular Rhythm GI/Abdominal Exam: Normal Bowel Sounds, Soft, Non-Tender, No Organomegaly, No Distention, No Abnormal Bruit, No Mass, Pelvis Stable Extremities: Normal Inspection, Normal Range of Motion, Non-Tender, No Pedal Edema, Normal Capillary Refill Neurological: Cranial Nerves Intact Neuro Extensive - Mental Status: Alert, Oriented x3, Normal Mood/Affect, Normal Cognition, Memory Intact Neuro Extensive - Motor, Sensory, Reflexes: CN II-XII Intact, Normal Gait, Normal Reflexes Psychiatric: Alert, Normal Affect, Normal Mood - Patient Data Lab Results Last 24 hrs: Laboratory Results - last 24 hr 05/01/17 05/01/17 Range/Units 04:19 06:42 POC Glucose 126 H 165 H (60-110) mg/dL Result Diagrams: 05/01/17 01:30 05/01/17 01:30 *Q Meaningful Use (ADM) - VTE *Q VTE Criteria *Q: - Stroke *Q Stroke Criteria *Q: - AMI *Q AMI Criteria *Q: - Problem List (1) Hypoglycemia SNOMED Code(s): 254228507 ICD Code: E16.2 - HYPOGLYCEMIA, UNSPECIFIED Status: Acute Current Visit: Yes (2) Syncope SNOMED Code(s): 633909582 ICD Code: R55 - SYNCOPE AND COLLAPSE Status: Acute Current Visit: Yes Qualifiers: Syncope type: unspecified Qualified Code(s): R55 - Syncope and collapse (3) DM type 2 (diabetes mellitus, type 2) SNOMED Code(s): 75788684 ICD Code: E11.9 - TYPE 2 DIABETES MELLITUS WITHOUT COMPLICATIONS Status: Chronic Current Visit: Yes Qualifiers: Diabetes mellitus complication status: with hypoglycemia Diabetes mellitus complication detail: without coma Diabetes mellitus mcc insulin use: with middle or intermediate school principal use Qualified Code(s): E11.649 - Type 2 diabetes mellitus with hypoglycemia without coma; Z79.4 - middle or intermediate school principal (current) use of insulin; Z79.4 - jail (current) use of insulin; Z79.4 - middle or intermediate school principal (current) use of insulin; Z79.4 - jail (current) use of insulin (4) HTN (hypertension) SNOMED Code(s): 94021427 ICD Code: I10 - ESSENTIAL (PRIMARY) HYPERTENSION Status: Chronic Current Visit: Yes Qualifiers: Hypertension type: essential hypertension Qualified Code(s): I10 - Essential (primary) hypertension (5) Hx of CABG SNOMED Code(s): 772152494 ICD Code: Z95.1 - PRESENCE OF AORTOCORONARY BYPASS GRAFT Status: Chronic Current Visit: Yes (6) CAD (coronary artery disease) SNOMED Code(s): 32125434 ICD Code: I25.10 - ATHSCL HEART DISEASE OF [place] CORONARY ARTERY W/O ANG PCTRS Status: Chronic Current Visit: Yes Qualifiers: Coronary Disease-Associated Artery/Lesion type: [place] artery [place] vs. transplanted heart: [place] heart Associated angina: without angina Qualified Code(s): I25.10 - Atherosclerotic heart disease of [place] coronary artery without angina pectoris (7) History of CVA (cerebrovascular accident) SNOMED Code(s): 683604420 ICD Code: Z86.73 - PRSNL HX OF TIA (TIA), AND CEREB INFRC W/O RESID DEFICITS Status: Chronic Current Visit: Yes (8) Insulin pump in place SNOMED Code(s): 435581833 ICD Code: Z96.41 - PRESENCE OF INSULIN PUMP (EXTERNAL) (INTERNAL) Status: Chronic Current Visit: Yes Problem List Initiated/Reviewed/Updated: Yes Orders Last 24hrs: Active Orders 24 hr Category Date Time Status Accu Check [Blood Glucose Check, Bedside] [RC] TIDAC Care 05/01/17 06:30 Active Telemetry Monitoring [Cardiac Monitoring] [RC] . Care 05/01/17 03:35 Active DIRECTED Consult to Makeup Sales Advisor [Consult to Diabetic Nurse Cons 05/01/17 04:49 Active Specialist] [CONS] Routine ADA Diabetic [[place] [employer] Diet] [DIET Diet 05/01/17 Breakfast Active ] Insulin Aspart [NovoLOG] Med 05/01/17 07:30 Active See Protocol SUBCUT TIDAC Patient's Own Medication [Ptom] Med 05/01/17 21:00 Active 1 each PO BEDTIME Patient's Own Medication [Ptom] Med 05/01/17 09:14 Active 1 each PO BID Patient's Own Medication [Ptom] Med 05/01/17 09:00 Active 1 each PO DAILY Patient's Own Medication [Ptom] Med 05/01/17 09:12 Active 1 each PO DAILY Patient's Own Medication [Ptom] Med 05/01/17 09:12 Active 1 each PO DAILY Patient's Own Medication [Ptom] Med 05/01/17 09:15 Active 1 each PO DAILY Patient's Own Medication [Ptom] Med 05/01/17 09:15 Active 1 each PO DAILY Medication Orders Insulin Aspart (Novolog) 0 unit SUBCUT TIDAC ISHMAEL PRN Reason: Protocol Last Admin: 05/01/17 07:48 Dose: 1 units Pramiprexole 0.25 Mg 1 each PO BEDTIME ISHMAEL Trandolapril (Mavik) (4 Mg) 1 each PO DAILY ISHMAEL Amlodipine 5 Mg 1 each PO DAILY ISHMAEL Atorvastatin 40 Mg 1 each PO DAILY ISHMAEL Clopidogrel 75 Mg 1 each PO DAILY ISHMAEL Isosorbide Nicholas 30 (Mg) 1 each PO DAILY ISHMAEL Metoprolol Tartrate (50 Mg) 1 each PO BID ISHMAEL Sodium Chloride (Saline Flush) 10 ml FLUSH ASDIRECTED PRN PRN Reason: Keep Vein Open Sodium Chloride (Saline Flush) 2.5 ml FLUSH ASDIRECTED PRN PRN Reason: Keep Vein Open Assessment/Plan Comment:: This 72 year old male admitted with syncopal event, likely secondary to hypoglycemia 1. Syncope: Secondary to hypoglycemia. Insulin pump off at this time, Consult DM educator. Educated about needing to monitor BS especially during and after exercise and to not ignore low BS feelings. Will await recommendations of DM educator. 2. DM type 2; Insulin pump off for now. Novolog SSI. Monitor. 3. HTN: Stable. Continue Home medications, including Metoprolol, Norvasc, and Trandolapril. 4. CAD: Stable. Continue Atorvastatin, Plavix and Imdur VTE prophylaxis: SCDs for now. Dispo: Possible DC home today after DM educator consultation. Discharge Plan: Discharge Diagnoses: Syncope secondary to hypoglycemic episode. DM type 2 HTN CAD [place] is feeling much better this afternoon. Insulin pump was replaced and he has administered two doses of corrective insulin. Currently BS is 285 and he is feeling well and asking for discharge home. He was again encouraged to press ACT button after entering BS into his pump. Lili Ordoñez, DM education interrogated pump, please see her note. But patient has been missing insulin dosings because he is forgetting to press ACT to deliver insulin. He also exercised last night, without checking BS or having snack afterwards. He ignored low BS feelings and had this event shortly after. He again was encouraged to monitor of these symptoms, and highly encouraged not to ignore them. He will follow with Dm educator on and Dr Trevizo next week. He is to return to ED or clinic if concerns should arise. He is to continue all medications as previously prescribed.
[2017-05-01] MEDS: TRANDOLAPRIL 4 MG PO SCH ×2 (09:32→09:34)
[2017-05-01] MEDS ORDERED: SUBCUTANEOUS INSULIN PUMP SUBCUT SCH (10:00)
[2017-05-01] MEDS ORDERED: Isosorbide Mononitrate 30 MG Tab.ER PO SCH (10:00)
[2017-05-01 11:55] VITALS: BP 118/58
--- NOTE | 2017-05-01 20:19 | CT ---
EXAM DATE: 05/01/17 PATIENT'S AGE: 72 Patient: MONIQUE HUERTAS Facility: [place], [place] Site . Site : 1945 Study: CT Head [id number] 2:36:33 AM Ordering Physician: Radha Kirkpatrick Final Report: INDICATION: Fell with head injury TECHNIQUE: CT Head without i.v. contrast. CONTRAST: None COMPARISON: None FINDINGS: CSF spaces: The ventricles are normal for age. Brain: A punctate chronic lacunar infarct is noted within the right thalamus. No mass-effect or midline shift is seen. Calvarium: The visualized paranasal sinuses are well aerated. The mastoid air cells are clear. The patient is status post bilateral cataract removal. The calvarium is unremarkable in appearance with no fractures identified. IMPRESSION: 1. No evidence of acute infarction, intracranial hemorrhage, or mass-effect seen. Dictated by Joselo Yin MD @ 05/01/2017 2:38:48 AM Dictated by: Joselo Yin MD @ 05/01/2017 02:38:55 (Electronic Signature) Report S[facility] Proxy. [facility]
--- NOTE | 2017-05-01 20:19 | CR ---
EXAM DATE: 05/01/17 PATIENT'S AGE: 72 Patient: MONIQUE HUERTAS Facility: [place], [place] Site . Site : 1945 Study: XRay Chest [id number] 2:36:13 AM Ordering Physician: Radha Kirkpatrick Final Report: INDICATION: Hypoglycemia TECHNIQUE: Chest radiograph 1 view COMPARISON: 10/30/2016 FINDINGS: Mediastinum: The heart silhouette is normal in size and morphology. The mediastinum is normal in appearance. Previous median sternotomy and coronary artery bypass grafting (CABG) noted. Lungs: A stable calcified granuloma measuring 5 mm is seen in the right lower lung zone. No sign of pleural effusion seen. No pneumothorax is identified. Bones and soft tissue: Multiple old, left-sided rib fractures are present without interval change. IMPRESSION: 1. No acute cardiopulmonary disease is seen. Dictated by Joselo Yin MD @ 05/01/2017 2:37:13 AM Dictated by: Joselo Yin MD @ 05/01/2017 02:37:20 (Electronic Signature) Report Signed by Proxy. [facility]
[2017-05-01] MEDS ORDERED: PRAMIPEXOLE 0.25 MG PO SCH (21:00)
== END 2017-05-01 14:10 | disposition home or self-care (01) ==
LOC: MW.ED 01:24 → MW.MS 03:29
PROVIDERS: ADMIT Internal Medicine; ATTEND Internal Medicine
DX: E11.649 Type 2 diabetes mellitus with hypoglycemia without coma (principal); E78.00 Pure hypercholesterolemia, unspecified; I10 Essential (primary) hypertension; I25.10 Atherosclerotic heart disease of native coronary artery without angina pectoris; I25.2 Old myocardial infarction; M19.90 Unspecified osteoarthritis, unspecified site; E66.9 Obesity, unspecified; Z96.41 Presence of insulin pump (external) (internal); Z95.1 Presence of aortocoronary bypass graft; Z95.5 Presence of coronary angioplasty implant and graft; Z79.01 Long term (current) use of anticoagulants; Z79.899 Other long term (current) drug therapy; Z79.4 Long term (current) use of insulin; Z86.73 Personal history of transient ischemic attack (TIA), and cerebral infarction without residual deficits; Z68.30 Body mass index [BMI] 30.0-30.9, adult; Z87.891 Personal history of nicotine dependence
CPT/HCPCS: 70450; 71010; 80053; 81001; 82550; 82962; 83036; 84484; 85025; 85610; 93005; 99285; J1815; 99284; A9270-GY; G0378

== ENCOUNTER 2018-02-06 15:39 | Emergency (ER) | payer MEDICARE, BC ==
--- NOTE | 2018-02-06 15:44 | EDM.PDOC ---
ED HPI GENERAL MEDICAL PROBLEM - General Stated Complaint: AMB Time Seen by Provider: 02/06/18 15:41 Source of Information: Reports: Patient - History of Present Illness INITIAL COMMENTS - FREE TEXT/NARRATIVE: HISTORY AND PHYSICAL: History of present illness: [Patient presents via EMS Patient was found to be hypoglycemic in his car he did not have an accident he pulled over EMS was called they found him to have a glucose of 31 provided D50 is alert on arrival to the ambulance bay he was refusing to come in for evaluation however did have a short discussion with them he elects to come in and be evaluated at this time Patient's glucose was 285 after an amp of D50 on arrival he is 195 at current Patient is alert and oriented he states that he took 6 units of regular insulin at noon and then decided not to eat lunch, the patient also has an insulin pump , hence this reported history does not make complete sense. The last reading on the pump is a glucose of 92 at 11 AM and a bolus dose of 5 units were provided at 12 AM via the pump. Apparently the patient has had several insulin reactions this summer, but it appears he may be taking insulin on top of pump, Patient later denied taking the additional insulin but admitted to taking the 5 unit bolus from the pump At current he has no fever nausea vomiting diarrhea constipation chest pain shortness breath headache dizziness or palpitation no bowel or urine symptoms Patient has been observed for an extended period is glucose bottomed at 1:30 after the D50 bolus, he is eating a snack and glucoses started to climb at 150 he is offered admission and declines he and his are very anxious to return home Review of systems: As per history of present illness and below otherwise all systems reviewed and negative. Past medical history: As per history of present illness and as reviewed below otherwise noncontributory. Surgical history: As per history of present illness and as reviewed below otherwise noncontributory. Social history: No reported history of drug or alcohol abuse. Family history: As per history of present illness and as reviewed below otherwise noncontributory. Physical exam: HEENT: Atraumatic, normocephalic, pupils reactive, negative for conjunctival pallor or scleral icterus, mucous membranes moist, throat clear, neck supple, nontender, trachea midline. Lungs: Clear to auscultation, breath sounds equal bilaterally, chest nontender. Heart: S1S2, regular, negative for clicks, rubs, or JVD. Abdomen: Soft, nondistended, nontender. Negative for masses or hepatosplenomegaly. Negative for costovertebral tenderness. Pelvis: Stable nontender. Genitourinary: Deferred. Rectal: Deferred. Extremities: Atraumatic, negative for cords or calf pain. Neurovascular unremarkable. Neuro: Awake, alert, oriented. Cranial nerves II through XII unremarkable. Cerebellum unremarkable. Motor and sensory unremarkable throughout. Exam nonfocal. Diagnostics: [CBC CMP troponin INR EKG Chest 1 view Accu-Chek Therapeutics: normal saline 1 25 mL per hour ]Snacks Patient offered observation admission and declined/refused HE and his desire to return home Impression: [Hypoglycemia Insulin reaction chronic history of baseline Definitive disposition and diagnosis as appropriate pending reevaluation and review of above. - Related Data Allergies Allergy/AdvReac Type Severity Reaction Status Date / Time No Known Allergies Allergy Verified 02/06/18 15:44 Home Meds: Home Meds Clopidogrel Bisulfate [Clopidogrel] 75 mg PO DAILY 05/13/14 [History] Metoprolol Tartrate [Lopressor] 75 mg PO BID 05/13/14 [History] Pramipexole [Mirapex] 0.25 - 0.5 mg PO BEDTIME 05/13/14 [History] Trandolapril [Mavik] 4 mg PO DAILY 05/13/14 [History] atorvaSTATin [Lipitor] 40 mg PO DAILY 05/13/14 [History] Insulin Lispro [HumaLOG] 50 - 60 unit SUBCUT .Q24 HRS PER PUMP 05/01/15 [History ] Subcutaneous Insulin Pump [Insulin Pump] 1 each MC ASDIRECTED 05/01/15 [History] Isosorbide Mononitrate [Imdur] 30 mg PO DAILY 05/01/17 [History] amLODIPine [Norvasc] 10 mg PO DAILY 05/01/17 [History] traZODone HCl [Trazodone HCl] 100 - 150 mg PO BEDTIME PRN 05/01/17 [History] Aspirin [Lo-Dose Aspirin EC] 81 mg PO DAILY 02/06/18 [History] Nitroglycerin [Nitrostat] 0.4 mg SL ASDIRECTED 02/06/18 [History] Past Medical History HEENT History: Reports: Cataract, Macular Degeneration Cardiovascular History: Reports: CAD, High Cholesterol, Hypertension, [place] (CABG and multiple stents in place). Denies: Blood Clots/VTE/DVT Respiratory History: Reports: None. Denies: Asthma, COPD, PE Gastrointestinal History: Reports: None. Denies: GERD, GI Bleed Genitourinary History: Reports: Prostate Disorder (frequency in urination) Musculoskeletal History: Reports: Arthritis Neurological History: Reports: CVA Psychiatric History: Reports: None Endocrine/Metabolic History: Reports: Diabetes, Type II, Obesity/BMI 30+ Hematologic History: Reports: None Immunologic History: Reports: None Oncologic (Cancer) History: Reports: None Dermatologic History: Reports: None - Infectious Disease History Infectious Disease History: Reports: Chicken Pox, Measles, Mumps - Past Surgical History Head Surgeries/Procedures: Reports: None HEENT Surgical History: Reports: Cataract Surgery Cardiovascular Surgical History: Reports: Coronary Artery Bypass, Coronary Artery Stent Respiratory Surgical History: Reports: None GI Surgical History: Reports: None Male Surgical History: Reports: None Endocrine Surgical History: Reports: None Neurological Surgical History: Reports: None Musculoskeletal Surgical History: Reports: Other (See Below) Other Musculoskeletal Surgeries/Procedures:: Back Surgery Oncologic Surgical History: Reports: None Social & Family History - Family History Family Medical History: Unobtainable - Caffeine Use Caffeine Use: Reports: Coffee - Living Situation & Occupation Living situation: Reports: ED ROS GENERAL - Review of Systems Review Of Systems: See Below ED EXAM, GENERAL - Physical Exam Exam: See Below Course - Vital Signs Last Recorded V/S: Last Vital Signs Temp 97.2 F 02/06/18 15:44 Pulse 61 02/06/18 15:44 Resp 20 02/06/18 15:44 BP 164/74 H 02/06/18 15:44 Pulse Ox 100 02/06/18 15:44 - Orders/Labs/Meds Orders: Active Orders 24 hr Category Date Time Status EKG Documentation Completion [RC] STAT Care 02/06/18 15:40 Active UA W/MICROSCOPIC [URIN] Stat Lab 02/06/18 15:40 Ordered Labs: Laboratory Tests 02/06/18 02/06/18 02/06/18 Range/Units 15:56 15:56 15:56 WBC 7.55 (4.0-11.0) K/uL RBC 4.32 L (4.50-5.90) M/uL Hgb 13.3 (13.0-17.0) g/dL Hct 39.0 (38.0-50.0) % MCV 90.3 (80.0-98.0) fL MCH 30.8 (27.0-32.0) pg MCHC 34.1 (31.0-37.0) g/dL RDW Std Deviation 46.9 (28.0-62.0) fl RDW Coeff of Thuy 14 (11.0-15.0) % Plt Count 119 L (150-400) K/uL MPV 10.20 (7.40-12.00) fL Neut % (Auto) 82.4 H (48.0-80.0) % Lymph % (Auto) 10.2 L (16.0-40.0) % [place] % (Auto) 5.8 (0.0-15.0) % Eos % (Auto) 1.3 (0.0-7.0) % Baso % (Auto) 0.3 (0.0-1.5) % Neut # (Auto) 6.2 H (1.4-5.7) K/uL Lymph # (Auto) 0.8 (0.6-2.4) K/uL [place] # (Auto) 0.4 (0.0-0.8) K/uL Eos # (Auto) 0.1 (0.0-0.7) K/uL Baso # (Auto) 0.0 (0.0-0.1) K/uL Nucleated RBC % 0.0 /100WBC Nucleated RBCs # 0 K/uL INR 1.05 Sodium 139 (136-148) mmol/L Potassium 3.9 (3.5-5.1) mmol/L Chloride 104 (98-107) mmol/L Carbon Dioxide 27.5 (21.0-32.0) mmol/L BUN 20 H (7.0-18.0) mg/dL Creatinine 1.5 H (0.8-1.3) mg/dL Est Cr Clr Drug Dosing 40.76 mL/min Estimated GFR (MDRD) 46.1 ml/min Glucose 162 H (74-106) mg/dL POC Glucose (60-110) mg/dL Calcium 9.0 (8.5-10.1) mg/dL Total Bilirubin 0.4 (0.2-1.0) mg/dL AST 10 L (15-37) IU/L ALT 22 (14-63) IU/L Alkaline Phosphatase 56 (46-116) U/L Troponin I < 0.050 (0.000-0.056) ng/mL Total Protein 6.9 (6.4-8.2) g/dL Albumin 3.7 (3.4-5.0) g/dL Globulin 3.2 (2.0-3.5) g/dL Albumin/Globulin Ratio 1.2 L (1.3-2.8) 02/06/18 Range/Units 16:52 WBC (4.0-11.0) K/uL RBC (4.50-5.90) M/uL Hgb (13.0-17.0) g/dL Hct (38.0-50.0) % MCV (80.0-98.0) fL MCH (27.0-32.0) pg MCHC (31.0-37.0) g/dL RDW Std Deviation (28.0-62.0) fl RDW Coeff of Thuy (11.0-15.0) % Plt Count (150-400) K/uL MPV (7.40-12.00) fL Neut % (Auto) (48.0-80.0) % Lymph % (Auto) (16.0-40.0) % [place] % (Auto) (0.0-15.0) % Eos % (Auto) (0.0-7.0) % Baso % (Auto) (0.0-1.5) % Neut # (Auto) (1.4-5.7) K/uL Lymph # (Auto) (0.6-2.4) K/uL [place] # (Auto) (0.0-0.8) K/uL Eos # (Auto) (0.0-0.7) K/uL Baso # (Auto) (0.0-0.1) K/uL Nucleated RBC % /100WBC Nucleated RBCs # K/uL INR Sodium (136-148) mmol/L Potassium (3.5-5.1) mmol/L Chloride (98-107) mmol/L Carbon Dioxide (21.0-32.0) mmol/L BUN (7.0-18.0) mg/dL Creatinine (0.8-1.3) mg/dL Est Cr Clr Drug Dosing mL/min Estimated GFR (MDRD) ml/min Glucose (74-106) mg/dL POC Glucose 133 H (60-110) mg/dL Calcium (8.5-10.1) mg/dL Total Bilirubin (0.2-1.0) mg/dL AST (15-37) IU/L ALT (14-63) IU/L Alkaline Phosphatase (46-116) U/L Troponin I (0.000-0.056) ng/mL Total Protein (6.4-8.2) g/dL Albumin (3.4-5.0) g/dL Globulin (2.0-3.5) g/dL Albumin/Globulin Ratio (1.3-2.8) Departure - Departure Time of Disposition: 17:37 Disposition: Home, Self-Care 01 Condition: Fair Clinical Impression: Insulin reaction, Hypoglycemia - Discharge Information Referrals: PCP,None [Primary Care Provider] - Additional Instructions: The following information is given to patients seen in the emergency department who are being discharged to home. This information is to outline your options for follow-up care. We provide all patients seen in our emergency department with a follow-up referral. The need for follow-up, as well as the timing and circumstances, are variable depending upon the specifics of your emergency department visit. If you don't have a primary care physician on staff, we will provide you with a referral. We always advise you to contact your personal physician following an emergency department visit to inform them of the circumstance of the visit and for follow-up with them and/or the need for any referrals to a consulting specialist. The emergency department will also refer you to a specialist when appropriate. This referral assures that you have the opportunity for follow-up care with a specialist. All of these measure are taken in an effort to provide you with optimal care, which includes your follow-up. Under all circumstances we always encourage you to contact your private physician who remains a resource for coordinating your care. When calling for follow-up care, please make the office aware that this follow-up is from your recent emergency room visit. If for any reason you are refused follow-up, please contact the [facility] emergency department at and asked to speak to the emergency department charge nurse. - My Orders Last 24 Hours: My Active Orders 02/06/18 15:40 EKG Documentation Completion [RC] STAT UA W/MICROSCOPIC [URIN] Stat - Assessment/Plan Last 24 Hours: My Active Orders 02/06/18 15:40 EKG Documentation Completion [RC] STAT UA W/MICROSCOPIC [URIN] Stat
--- NOTE | 2018-02-06 16:17 | CR ---
EXAMINATION: Portable chest radiograph. HISTORY: Pain. FINDINGS: The trachea is midline. Increasing nodular density measuring approximately 3.3 cm within the right angulo prahilar region. No pulmonary infiltrates, effusions or pneumothorax. Median sternotomy wires are not ed. Old granulomatous disease. Old left-sided rib fractures noted. IMPRESSION: 1. No acute cardiopulmonary process. 2. Rounded soft tissue prominence within the right suprahilar region. Follow-up with a CT chest may b e beneficial.
[2018-02-06 16:27] LABS: CHLORIDE,CL 104 mmol/L (98-107); SODIUM,NA 139 mmol/L (136-148)
[2018-02-06 18:01] VITALS: BP 149/74
== END 2018-02-06 17:57 | disposition home or self-care (01) ==
LOC: MW.ED 15:39
DX: E11.649 Type 2 diabetes mellitus with hypoglycemia without coma (principal); I10 Essential (primary) hypertension; E78.00 Pure hypercholesterolemia, unspecified; Z79.4 Long term (current) use of insulin; Z79.899 Other long term (current) drug therapy; Z79.82 Long term (current) use of aspirin
CPT/HCPCS: 36415; 71045; 71045-26; 80053; 82962; 84484; 85025; 85610; 93005; 99284-25

== ENCOUNTER 2019-03-31 16:50 | Emergency (ER) | payer MEDICARE, BC ==
[2019-03-31] MEDS ORDERED: Sodium Chloride 0.9% 2.5 ML Syringe FLUSH PRN (16:52)
[2019-03-31] MEDS ORDERED: Sodium Chloride 0.9% 10 ML Syringe FLUSH PRN (16:52)
--- NOTE | 2019-03-31 16:53 | EDM.PDOC ---
ED HPI GENERAL MEDICAL PROBLEM - General Stated Complaint: CHEST PAIN Time Seen by Provider: 03/31/19 16:51 Source of Information: Reports: Patient History Limitations: Reports: No Limitations - History of Present Illness INITIAL COMMENTS - FREE TEXT/NARRATIVE: History of present illness: []Patient has coronary artery disease status post CABG in 2007 or 8 subsequent stents last being 2017 placed in [place], resents with substernal nonradiating 6 /10 chest pain as stated with weakness in his legs and nausea. Denies any shortness of breath, dizziness, syncope or vomiting. She shovels snow 2 hours ago and went inside to watch football and one hour later started having chest pain. He took 2 or glycerin tablets prior to arrival about 20 minutes ago however they did not change his pain much. He states that nitroglycerin usually does not work for him. Review of systems: As per history of present illness and below otherwise all systems reviewed and negative. Past medical history: As per history of present illness and as reviewed below otherwise noncontributory. Surgical history: As per history of present illness and as reviewed below otherwise noncontributory. Social history: No reported history of drug or alcohol abuse. Family history: As per history of present illness and as reviewed below otherwise noncontributory. Physical exam: General: Well developed, well nourished in NAD HEENT: Atraumatic, normocephalic, pupils reactive, negative for conjunctival pallor or scleral icterus, mucous membranes moist, throat clear, neck supple, nontender, trachea midline. Lungs: Clear to auscultation, breath sounds equal bilaterally, chest nontender. Heart: S1S2, regular, negative for clicks, rubs, or JVD. Abdomen: NABS, Soft, nondistended, nontender. Negative for masses or hepatosplenomegaly. Negative for costovertebral tenderness. Pelvis: Stable nontender. Genitourinary: Deferred. Rectal: Deferred. Extremities: Atraumatic, negative for cords or calf pain. Neurovascular unremarkable. Neuro: Awake, alert, oriented. Cranial nerves II through XII unremarkable. Cerebellum unremarkable. Motor and sensory unremarkable throughout. Exam nonfocal. Skin:warm and dry Diagnostics: EKG, chest x-ray, CBC, chemistry, troponin Therapeutics: aspirin, nitroglycerin ED Course: Impression: Prescriptions: Plan: Definitive disposition and diagnosis as appropriate pending reevaluation and review of above. chest Pain Score (Numeric/FACES): 7 - Related Data Allergies Allergy/AdvReac Type Severity Reaction Status Date / Time No Known Allergies Allergy Verified 03/31/19 16:57 Home Meds: Home Meds Clopidogrel Bisulfate [Clopidogrel] 75 mg PO DAILY 05/13/14 [History] Metoprolol Tartrate [Lopressor] 75 mg PO BID 05/13/14 [History] Pramipexole [Mirapex] 0.25 - 0.5 mg PO BEDTIME 05/13/14 [History] Trandolapril [Mavik] 4 mg PO DAILY 05/13/14 [History] atorvaSTATin [Lipitor] 40 mg PO DAILY 05/13/14 [History] Insulin Lispro [HumaLOG] 50 - 60 unit SUBCUT .Q24 HRS PER PUMP 05/01/15 [History ] Subcutaneous Insulin Pump [Insulin Pump] 1 each MC ASDIRECTED 05/01/15 [History] Isosorbide Mononitrate [Imdur] 30 mg PO DAILY 05/01/17 [History] amLODIPine [Norvasc] 10 mg PO DAILY 05/01/17 [History] traZODone HCl [Trazodone HCl] 100 - 150 mg PO BEDTIME PRN 05/01/17 [History] Aspirin [Lo-Dose Aspirin EC] 81 mg PO DAILY 02/06/18 [History] Nitroglycerin [Nitrostat] 0.4 mg SL ASDIRECTED 02/06/18 [History] Past Medical History HEENT History: Reports: Cataract, Macular Degeneration Cardiovascular History: Reports: CAD, High Cholesterol, Hypertension, [place] (CABG and multiple stents in place). Denies: Blood Clots/VTE/DVT Respiratory History: Reports: None. Denies: Asthma, COPD, PE Gastrointestinal History: Reports: None. Denies: GERD, GI Bleed Genitourinary History: Reports: Prostate Disorder (frequency in urination) Musculoskeletal History: Reports: Arthritis Neurological History: Reports: CVA Psychiatric History: Reports: None Endocrine/Metabolic History: Reports: Diabetes, Type II, Obesity/BMI 30+ Hematologic History: Reports: None Immunologic History: Reports: None Oncologic (Cancer) History: Reports: None Dermatologic History: Reports: None - Infectious Disease History Infectious Disease History: Reports: Chicken Pox, Measles, Mumps - Past Surgical History Head Surgeries/Procedures: Reports: None HEENT Surgical History: Reports: Cataract Surgery Cardiovascular Surgical History: Reports: Coronary Artery Bypass, Coronary Artery Stent Respiratory Surgical History: Reports: None GI Surgical History: Reports: None Male Surgical History: Reports: None Endocrine Surgical History: Reports: None Neurological Surgical History: Reports: None Musculoskeletal Surgical History: Reports: Other (See Below) Other Musculoskeletal Surgeries/Procedures:: Back Surgery Oncologic Surgical History: Reports: None Social & Family History - Family History Family Medical History: Unobtainable - Caffeine Use Caffeine Use: Reports: Coffee - Living Situation & Occupation Living situation: Reports: ED ROS GENERAL - Review of Systems Review Of Systems: See Below ED EXAM, GENERAL - Physical Exam Exam: See Below Course - Vital Signs Last Recorded V/S: Last Vital Signs Temp 96.8 F 03/31/19 16:56 Pulse 70 03/31/19 17:22 Resp 18 03/31/19 17:22 BP 125/72 03/31/19 17:22 Pulse Ox 96 03/31/19 17:22 - Orders/Labs/Meds Orders: Active Orders 24 hr Category Date Time Status Cardiac Monitoring [RC] . DIRECTED Care 03/31/19 16:52 Active EKG Documentation Completion [RC] STAT Care 03/31/19 16:52 Active Sodium Chloride 0.9% [Saline Flush] Med 03/31/19 16:52 Active 10 ml FLUSH ASDIRECTED PRN Sodium Chloride 0.9% [Saline Flush] Med 03/31/19 16:52 Active 2.5 ml FLUSH ASDIRECTED PRN Saline Lock Insert [OM.PC] Stat Oth 03/31/19 16:51 Ordered Medication Orders Sodium Chloride (Saline Flush) 10 ml FLUSH ASDIRECTED PRN PRN Reason: Keep Vein Open Sodium Chloride (Saline Flush) 2.5 ml FLUSH ASDIRECTED PRN PRN Reason: Keep Vein Open Labs: Laboratory Tests 03/31/19 03/31/19 Range/Units 16:53 16:53 WBC 5.42 (4.0-11.0) K/uL RBC 4.71 (4.50-5.90) M/uL Hgb 14.6 (13.0-17.0) g/dL Hct 42.1 (38.0-50.0) % MCV 89.4 (80.0-98.0) fL MCH 31.0 (27.0-32.0) pg MCHC 34.7 (31.0-37.0) g/dL RDW Std Deviation 45.6 (28.0-62.0) fl RDW Coeff of Thuy 14 (11.0-15.0) % Plt Count 151 (150-400) K/uL MPV 10.30 (7.40-12.00) fL Neut % (Auto) 83.4 H (48.0-80.0) % Lymph % (Auto) 7.0 L (16.0-40.0) % [place] % (Auto) 7.7 (0.0-15.0) % Eos % (Auto) 1.7 (0.0-7.0) % Baso % (Auto) 0.2 (0.0-1.5) % Neut # (Auto) 4.5 (1.4-5.7) K/uL Lymph # (Auto) 0.4 L (0.6-2.4) K/uL [place] # (Auto) 0.4 (0.0-0.8) K/uL Eos # (Auto) 0.1 (0.0-0.7) K/uL Baso # (Auto) 0.0 (0.0-0.1) K/uL Nucleated RBC % 0.0 /100WBC Nucleated RBCs # 0 K/uL Sodium 141 (136-148) mmol/L Potassium 4.3 (3.5-5.1) mmol/L Chloride 104 (98-107) mmol/L Carbon Dioxide 26.5 (21.0-32.0) mmol/L BUN 32 H (7.0-18.0) mg/dL Creatinine 1.6 H (0.8-1.3) mg/dL Est Cr Clr Drug Dosing 33.59 mL/min Estimated GFR (MDRD) 42.7 ml/min Glucose 97 (74-106) mg/dL Calcium 9.7 (8.5-10.1) mg/dL Total Bilirubin 0.4 (0.2-1.0) mg/dL AST 19 (15-37) IU/L ALT 43 (14-63) IU/L Alkaline Phosphatase 59 (46-116) U/L Troponin I < 0.050 (0.000-0.056) ng/mL Total Protein 8.1 (6.4-8.2) g/dL Albumin 4.5 (3.4-5.0) g/dL Globulin 3.6 (2.6-4.0) g/dL Albumin/Globulin Ratio 1.2 (0.9-1.6) Meds: Medications Generic Name Dose Route Start Last Admin Trade Name Freq PRN Reason Stop Dose Admin Sodium Chloride 10 ml 03/31/19 16:52 Saline Flush FLUSH ASDIRECTED PRN Keep Vein Open Sodium Chloride 2.5 ml 03/31/19 16:52 Saline Flush FLUSH ASDIRECTED PRN Keep Vein Open Discontinued Medications Generic Name Dose Route Start Last Admin Trade Name Freq PRN Reason Stop Dose Admin Aspirin 324 mg 03/31/19 16:54 03/31/19 17:04 Aspirin PO 03/31/19 16:55 324 mg ONETIME ONE Administration Al Hydroxide/Mg Hydroxide 15 0 ml 03/31/19 17:25 ml/ Metoclopramide HCl 5 mg/ PO 03/31/19 17:26 Lidocaine HCl 5 ml ONETIME ONE Nitroglycerin 0.4 mg 03/31/19 16:54 03/31/19 17:16 Nitrostat SL 0.4 mg Q5M PRN Administration Chest Pain Nitroglycerin 1 gm 03/31/19 17:25 Nitro-Bid 2% TOP 03/31/19 17:26 ONETIME ONE Departure - Departure Time of Disposition: 17:35 Disposition: Refer to Observation Condition: Good Clinical Impression: Chest pain Qualifiers: Chest pain type: unspecified Qualified Code(s): R07.9 - Chest pain, unspecified Referrals: Jackson Trevizo MD [Primary Care Provider] - - My Orders Last 24 Hours: My Active Orders 03/31/19 16:51 Saline Lock Insert [OM.PC] Stat 03/31/19 16:52 Cardiac Monitoring [RC] . DIRECTED EKG Documentation Completion [RC] STAT Sodium Chloride 0.9% [Saline Flush] 10 ml FLUSH ASDIRECTED PRN Sodium Chloride 0.9% [Saline Flush] 2.5 ml FLUSH ASDIRECTED PRN - Assessment/Plan Last 24 Hours: My Active Orders 03/31/19 16:51 Saline Lock Insert [OM.PC] Stat 03/31/19 16:52 Cardiac Monitoring [RC] . DIRECTED EKG Documentation Completion [RC] STAT Sodium Chloride 0.9% [Saline Flush] 10 ml FLUSH ASDIRECTED PRN Sodium Chloride 0.9% [Saline Flush] 2.5 ml FLUSH ASDIRECTED PRN
[2019-03-31] MEDS ORDERED: Aspirin 81 MG Tab.Chew PO ONE (16:54)
[2019-03-31] MEDS: Nitroglycerin 0.4 MG Tab.SL SL PRN ×3 (17:06→17:16)
--- NOTE | 2019-03-31 17:13 | CR ---
INDICATION: Chest pain TECHNIQUE: Chest 1 view. COMPARISON: 03/12/2018 FINDINGS: Cardiovascular and mediastinum: Heart size and vasculature are normal in caliber and appearance. Mediastinum is within normal limits. Sternotomy wires noted. Lungs and pleural space: Lungs are clear. No sign of infiltrate. Stable 8 millimeter probable calcified granuloma right midlung. No sign of pleural effusion. No pneumothorax. Bones and soft tissues: Multiple healed left mid rib fractures.. IMPRESSION: No acute pulmonary or cardiac abnormalities. Stable 8 millimeter probable calcified granuloma right midlung. Dictated by Linden Alves MD @ 03/31/2019 5:12:23 PM Dictated by: Linden Alves MD @ 03/31/2019 17:12:37 (Electronically Signed)
[2019-03-31] MEDS ORDERED: Alum Hydrox/Mag Hydrox/Simeth 15 ML, Metoclopramide 5 MG, Lidocaine 2% 5 ML PO ONE ×3 (17:25)
[2019-03-31] MEDS ORDERED: Nitroglycerin 2% Oint 1 GM UD Packet TOP ONE (17:25)
[2019-03-31 17:27] LABS: BLOOD UREA NITROGEN,BUN 32 mg/dL (7.0-18.0); CARBON DIOXIDE,CO2 26.5 mmol/L (21.0-32.0); CHLORIDE,CL 104 mmol/L (98-107); GLUCOSE RANDOM 97 mg/dL (74-106); POTASSIUM,K 4.3 mmol/L (3.5-5.1); SODIUM,NA 141 mmol/L (136-148)
[2019-03-31] MEDS ORDERED: Ondansetron 4 MG Tab.DIS PO PRN (17:39)
[2019-03-31] MEDS ORDERED: Morphine 10 MG/ML Syringe IVPUSH PRN (17:39)
[2019-03-31] MEDS ORDERED: Acetaminophen 325 MG Tab PO PRN (17:39)
[2019-03-31] MEDS ORDERED: Ondansetron 4 MG/2 ML SDV IVPUSH PRN (17:39)
[2019-03-31] MEDS ORDERED: Heparin Sodium 5,000 Units/ML Vial SUBCUT SCH (17:45)
--- NOTE | 2019-03-31 18:12 | PCM.SN ---
- Free Text/Narrative Note: Went to evaluate the patient in the ED and he stated he was not staying in the hospital overnight. He was signing AMA.
[2019-03-31 18:39] VITALS: BP 143/74; PULSE 65
== END 2019-03-31 18:18 | disposition other institution (70) ==
LOC: MW.ED 16:50
DX: R07.9 Chest pain, unspecified (principal); I10 Essential (primary) hypertension; E11.9 Type 2 diabetes mellitus without complications; I25.2 Old myocardial infarction; I25.10 Atherosclerotic heart disease of native coronary artery without angina pectoris; M19.90 Unspecified osteoarthritis, unspecified site; E66.9 Obesity, unspecified; Z68.31 Body mass index [BMI] 31.0-31.9, adult; E78.00 Pure hypercholesterolemia, unspecified; Z79.82 Long term (current) use of aspirin; Z79.02 Long term (current) use of antithrombotics/antiplatelets; Z79.899 Other long term (current) drug therapy; Z79.4 Long term (current) use of insulin
CPT/HCPCS: 36415; 71045; 80053; 82962; 84484; 85025; 93005; 99285; A9270; 99283

== ENCOUNTER 2020-10-02 06:26 | Day surgery (SDC) | payer MEDICARE, BC ==
[~2020-10-02 06:26] MED LIST: Lactated Ringers 1,000 ML IV SCH
[2020-10-02] MEDS ORDERED: Midazolam 1 MG/ML 2 ML SDV ONE (06:57)
[2020-10-02] MEDS ORDERED: fentaNYL 100 MCG/2 ML SDV ONE (06:57)
[2020-10-02] MEDS ORDERED: Propofol 200 MG/20 ML SDV ONE (06:57)
--- NOTE | 2020-10-02 07:30 | PCM.PREANE ---
Preanesthetic Assessment - Anesthesia/Transfusion/Family Hx Anesthesia History: Prior Anesthesia Without Reaction Family History of Anesthesia Reaction: No Transfusion History: No Prior Transfusion(s) - Review of Systems General: No Symptoms Pulmonary: No Symptoms Cardiovascular: No Symptoms Gastrointestinal: No Symptoms Neurological: No Symptoms Other: Reports: None - Physical Assessment NPO Status Date: 10/02/20 NPO Status Time: 00:01 Vital Signs: Last Vital Signs Temp 96.8 F L 10/02/20 06:50 Pulse 53 L 10/02/20 06:50 Resp 16 10/02/20 06:50 BP 132/60 10/02/20 06:50 Pulse Ox 96 10/02/20 06:50 Height: 5 ft 3 in Weight: 194 lb ASA Class: 3 Mental Status: Alert & Oriented x3 Airway Class: Mallampati = 2 Dentition: Reports: Normal Dentition, Dentures ROM/Head Extension: Limited/Partial Lungs: Clear to Auscultation, Normal Respiratory Effort Cardiovascular: Regular Rate, Regular Rhythm - Lab Values: Laboratory Last Values POC Glucose 198 mg/dL (70-99) H 10/02/20 06:41 - Allergies Allergies/Adverse Reactions: Allergies Allergy/AdvReac Type Severity Reaction Status Date / Time No Known Allergies Allergy Verified 10/02/20 07:03 - Anesthesia Plan Pre-Op Medication Ordered: None - Acknowledgements Anesthesia Type Planned: General Anesthesia Pt an Appropriate Candidate for the Planned Anesthesia: Yes Alternatives and Risks of Anesthesia Discussed w Pt/Guardian: Yes Pt/Guardian Understands and Agrees with Anesthesia Plan: Yes Additional Comments: npo IDDM htn prostate CA w XRT 2019 tob quit 1989 etoh quit 1989 obesity bmi 35 NH X 3 last one 2018 CABG(2) 1999 multiple cardiac stents last one 2018 occ chest pain lst episode 1 year ago hx chf not admitted for this CVA RLS increased cv risk par no questions PreAnesthesia Questionnaire HEENT History: Reports: Cataract, Macular Degeneration Other HEENT History: reading glasses, top partial Cardiovascular History: Reports: CAD, High Cholesterol, Hypertension, [place] Respiratory History: Reports: None Gastrointestinal History: Reports: Chronic Diarrhea Genitourinary History: Reports: Prostate Disorder Other Genitourinary History: stage 3 chronic kidney disease, hx prostate cancer Musculoskeletal History: Reports: Arthritis Other Musculoskeletal History: hx fx foot Neurological History: Reports: CVA, Other (See Below) Other Neuro History: stroke in August 2006, restless leg syndrome Psychiatric History: Reports: None Endocrine/Metabolic History: Reports: Diabetes, Type II, Obesity/BMI 30+ Hematologic History: Reports: None Immunologic History: Reports: None Oncologic (Cancer) History: Reports: Prostate Dermatologic History: Reports: None - Infectious Disease History Infectious Disease History: Reports: Chicken Pox, Measles, Mumps - Past Surgical History Head Surgeries/Procedures: Reports: None HEENT Surgical History: Reports: Cataract Surgery Cardiovascular Surgical History: Reports: Coronary Artery Bypass, Coronary Artery Stent, Percutaneous Transluminal Angioplasty Respiratory Surgical History: Reports: None GI Surgical History: Reports: None Male Surgical History: Reports: TURP-Transurethral Resection of Prostate Other Male Surgeries/Procedures: radiation for prostate cancer Endocrine Surgical History: Reports: None Neurological Surgical History: Reports: Lumbar Spine Other Neurological Surgeries/Procedures: hx back surgery Musculoskeletal Surgical History: Reports: Other (See Below) Other Musculoskeletal Surgeries/Procedures:: Back Surgery Other Oncologic Surgeries/Procedures: radiation for prostate cancer Dermatological Surgical History: Reports: None - SUBSTANCE USE Tobacco Use Status *Q: Former Tobacco User Tobacco Use Within Last Twelve Months: No - HOME MEDS Home Medications: Home Meds Metoprolol Tartrate [Lopressor] 100 mg PO BID 05/13/14 [History] atorvaSTATin [Lipitor] 40 mg PO DAILY 05/13/14 [History] trandolapriL [Mavik] 4 mg PO DAILY 05/13/14 [History] Insulin Lispro [HumaLOG] 50 - 60 unit SUBCUT .Q24 HRS PER PUMP 05/01/15 [History] Isosorbide Mononitrate [Imdur] 60 mg PO DAILY 05/01/17 [History] Aspirin [Lo-Dose Aspirin EC] 81 mg PO DAILY 02/06/18 [History] Nitroglycerin [Nitrostat] 0.4 mg SL ASDIRECTED PRN 02/06/18 [History] Pramipexole Di-HCl [Pramipexole Dihydrochloride] 1 - 2 tab PO BEDTIME 09/28/20 [History] - CURRENT (IN HOUSE) MEDS Current Meds: Current Medications Lactated Ringer's (Ringers, Lactated) 1,000 mls @ 125 mls/hr IV ASDIRECTED ISHMAEL Last Admin: 10/02/20 06:49 Dose: 125 mls/hr Documented by: Discontinued Medications Fentanyl (Fentanyl 100 Mcg/2 Ml Sdv) Confirm Administered Dose 100 mcg .ROUTE .STK-MED ONE Stop: 10/02/20 06:58 Midazolam HCl (Midazolam 1 Mg/Ml 2 Ml Sdv) Confirm Administered Dose 2 mg .ROUTE .STK-MED ONE Stop: 10/02/20 06:58 Propofol (Propofol 200 Mg/20 Ml Sdv) Confirm Administered Dose 200 mg .ROUTE .STK-MED ONE Stop: 10/02/20 06:58
[2020-10-02] MEDS ORDERED: ePHEDrine 50 MG/ML SDV ONE (07:47)
[2020-10-02] MEDS ORDERED: Sodium Chloride 0.9% 20 ML ONE (07:47)
--- NOTE | 2020-10-02 08:07 | PCM.OPNOTE ---
- General Post-Op/Procedure Note Date of Surgery/Procedure: 10/02/20 Operative Procedure(s): Colonoscopy with rectal biopsies Pre Op Diagnosis: Intermittent rectal bleeding Post-Op Diagnosis: Moderate proctitis Anesthesia Technique: MAC (ASA III) Primary Surgeon: Bandar Bryant Condition: Good Free Text/Narrative:: DICTATION [id number] CPT CODE 10117
[2020-10-02] MEDS ORDERED: Lactated Ringers 1,000 ML IV SCH (08:15)
[2020-10-02 08:21] VITALS: PULSE 68
--- NOTE | 2020-10-02 08:28 | PCM.POSTAN ---
POST ANESTHESIA ASSESSMENT - MENTAL STATUS Mental Status: Alert (no anesthetic problems), Oriented - VITAL SIGNS Vital Signs: Last Vital Signs Temp 96.8 F L 10/02/20 06:50 Pulse 68 10/02/20 08:19 Resp 12 10/02/20 08:19 BP 118/46 L 10/02/20 08:19 Pulse Ox 96 10/02/20 08:19 - RESPIRATORY Respiratory Status: Respiratory Rate WNL, Airway Patent, O2 Saturation Stable - CARDIOVASCULAR CV Status: Pulse Rate WNL, Blood Pressure Stable - GASTROINTESTINAL GI Status: No Symptoms - POST OP HYDRATION Hydration Status: Adequate & Stable
[2020-10-02 08:41] VITALS: BP 131/62
--- NOTE | 2020-10-02 09:42 | PCM48HPAN ---
Post Anesthesia Note - EVALUATION WITHIN 48HRS OF ANESTHETIC Vital Signs in Normal Range: Yes Patient Participated in Evaluation: Yes Respiratory Function Stable: Yes Airway Patent: Yes Cardiovascular Function Stable: Yes Hydration Status Stable: Yes Pain Control Satisfactory: Yes Nausea and Vomiting Control Satisfactory: Yes Mental Status Recovered: Yes Vital Signs: Last Vital Signs Temp 97.2 F 10/02/20 08:25 Pulse 68 10/02/20 08:25 Resp 14 10/02/20 08:25 BP 131/62 10/02/20 08:25 Pulse Ox 96 10/02/20 08:25
--- NOTE | 2020-10-02 14:51 | OR ---
SURGEON: Bandar Bryant M.D. DATE OF PROCEDURE: 10/02/2020 OPERATION PERFORMED: Colonoscopy with biopsies of rectum. PRIMARY SURGEON: Bandar Bryant M.D. ANESTHESIA: MAC. ASA CLASSIFICATION: III. PREOPERATIVE DIAGNOSIS: Rectal bleeding. POSTOPERATIVE DIAGNOSIS: Acute proctitis without ulceration. DESCRIPTION OF PROCEDURE: The patient was taken to the endoscopy room and positioned on the endoscopy table in the left lateral decubitus position. Time-out was called for appropriate identification of the patient and procedure. Monitored anesthesia care was provided. The colonoscope was inserted into the rectum and advanced with minimal difficulty to the cecum. The cecum was identified by internal landmarks and external pressure. The colonoscope was retroflexed to visualize the ascending colon from below, then straightened, and slowly withdrawn. The cecum, ascending colon, hepatic flexure, transverse colon, splenic flexure, descending colon, and sigmoid colon were all very well visualized. No tumors, polyps, diverticula, or angiodysplastic changes were noted anywhere along the lower gastrointestinal tract. Once the colonoscope was withdrawn to the rectum, the rectum did appear moderately inflamed. I did not see any acute ulcerations. Biopsies of the rectum were obtained. The colonoscope was then retroflexed to visualize the anal orifice from above. No acute hemorrhoids were noted. The colonoscope was then straightened, the rectum aspirated, and the colonoscope removed. The patient tolerated the procedure well and was taken to recovery room in stable condition. MCKENNA / EYAD /[id number]
== END 2020-10-02 09:12 | disposition home or self-care (01) ==
LOC: MW.SDS 06:26
PROVIDERS: ATTEND Surgery
DX: K62.89 Other specified diseases of anus and rectum (principal); I25.10 Atherosclerotic heart disease of native coronary artery without angina pectoris; E78.00 Pure hypercholesterolemia, unspecified; E11.51 Type 2 diabetes mellitus with diabetic peripheral angiopathy without gangrene; E11.22 Type 2 diabetes mellitus with diabetic chronic kidney disease; I12.9 Hypertensive chronic kidney disease with stage 1 through stage 4 chronic kidney disease, or unspecified chronic kidney disease; N18.30 Chronic kidney disease, stage 3 unspecified; I25.2 Old myocardial infarction; E66.9 Obesity, unspecified; Z79.4 Long term (current) use of insulin; Z79.899 Other long term (current) drug therapy; Z79.82 Long term (current) use of aspirin; Z90.49 Acquired absence of other specified parts of digestive tract; Z98.890 Other specified postprocedural states; Z87.891 Personal history of nicotine dependence; Z80.0 Family history of malignant neoplasm of digestive organs; Z68.35 Body mass index [BMI] 35.0-35.9, adult; Z95.1 Presence of aortocoronary bypass graft
CPT/HCPCS: 45380; 82947; J2250; J2704; J3010; J7120; 00811; 88305

== ENCOUNTER 2020-10-23 11:57 | Emergency (ER) | payer MEDICARE, BC ==
[2020-10-23] MEDS ORDERED: Sodium Chloride 0.9% 2.5 ML Syringe FLUSH PRN (12:14)
[2020-10-23] MEDS ORDERED: Sodium Chloride 0.9% 10 ML Syringe FLUSH PRN (12:14)
[2020-10-23] MEDS ORDERED: Nitroglycerin 0.4 MG Tab.SL SL PRN (12:19)
--- NOTE | 2020-10-23 12:19 | EDM.PDOC ---
ED HPI GENERAL MEDICAL PROBLEM - General Chief Complaint: Chest Pain Stated Complaint: CHEST PAIN Time Seen by Provider: 10/23/20 12:04 - History of Present Illness INITIAL COMMENTS - FREE TEXT/NARRATIVE: HISTORY AND PHYSICAL: History of present illness: This is a 75-year-old gentleman with a history significant for hypertension, diabetes, hypercholesterolemia, bypass surgery with CAD, prostate cancer, who presents ER today complaining of midsternal chest discomfort that started at approximately 9 AM today when [place] f[place]. Patient reports that the pain has been constant for the last 3 hours. Patient reports that the pain is different than his prior coronary artery disease/RI pain. Patient reports that the pain is an ache and cannot describe it as a sharp sensation or dull sensation. He reports that it is definitely not a burning sensation which is a discomfort that he felt was his prior heart attack. Patient denies any associated nausea, vomiting, diaphoresis. Patient reports th at he has no pain rating to his arm jaw or back. Patient reports he does have associated shortness of breath with the discomfort. Patient denies any recent fevers, shakes, chills, nausea, vomiting, diarrhea, dysuria, frequency, urgency. Patient reports no pain with deep inspiration or cough. Patient reports that he has a chronic cough that is Believes is secondary to his blood pressure medications and reports that he has not had any change in his cough or production. Patient reports no change with rest or exertion to his discomfort in his chest. Patient reports no change with deep inspiration, meals, cough. Patient denies any lower extremity pain or calf swelling. Patient denies any hemoptysis. Patient denies any melena or bright red blood per rectum. Review of systems: As per history of present illness and below otherwise all systems reviewed and negative. Past medical history: As per history of present illness and as reviewed below otherwise noncontributory. Surgical history: As per history of present illness and as reviewed below otherwise noncontributory. Social history: No reported history of drug abuse. Family history: As per history of present illness and as reviewed below otherwise noncontributory. Physical exam: This patient was seen and evaluated during the 2019 SARS-CoV-2 novel coronavirus pandemic period. Community viral transmission is ongoing at time of this encounter and the emergency department is operating under pandemic response procedures. Constitutional: Patient is oriented to person, place, and time. Appears well- developed and well-nourished. No distress. HEENT: Moist mucous membranes Head: Normocephalic and atraumatic Eyes: Right eye exhibits no discharge. Left eye exhibits no discharge. No scleral icterus Neck: Normal range of motion. No tracheal deviation present. Cardiovascular: Normal rate and regular rhythm. Pulmonary: Effort normal, no respiratory distress. Abdominal: No distention Musculoskeletal: Normal range of motion Neurologic: Alert and oriented to person, place and time. Skin: [place], warm and dry. Psychiatric: Normal mood and affect. Behavior is normal. Judgment and thought content normal. Nursing note and vital signs have been reviewed Diagnostics: EKG: As interpreted by ER physician: Santiago: Nonspecific ST-T wave abnormalities Normal axis No evidence of ST elevation RI Sinus bradycardia heart rate 52 Therapeutics: Assessment and plan: This is a 75-year-old gentleman with a history significant for hypertension, diabetes, hypercholesterolemia, prior CAD who presents ER today complaining of midsternal chest discomfort which is dissimilar from his prior CAD pain. Patient will be given a sublingual nitro to assist the level of his discomfort to see if it would improve. Patient will have labs drawn including a CBC, CMP, troponin, D-dimer, BNP. Patient's EKG does not appear to show any changes concerning for STEMI. Patient's EKG was nondiagnostic for ischemia. Patient's chest x-ray was unremarkable. Patient's D-dimer was elevated however his BUN and creatinine are also elevated with a diminished GFR making it high risk for CTA. I have discussed with the patient my concern with his labs as well as his discomfort and his high risk that he should be admitted to the hospital for observation. Patient is adamant against admission and reports he just does not like hospitals. I have discussed with the patient of risks of and disability including heart failure if you should refuse admission and he has verbalized understanding. Patient has been able to exert both competency as well as capacity for medical decision-making and I will respect to the autonomy and allow him to sign out AGAINST MEDICAL ADVICE. The patient is clinically sober, free from distracting injury, appears to have intact insight and judgment and reason and in my opinion has the capacity to make decisions. The patient presents with chest pain. I have explained that I am concerned that this may represent heart attack, dissection, PE and the patient verbalized an understanding of my concerns. I told the patient that while the EKG and blood tests were normal, they could still have a heart attack and . I discussed the need for admission. I have told the patient that if they leave and have coronary disease, PE, dissection, they could get much worse, could become critically ill and could possibly come disabled to . I have offered to give the patient admission. I have discussed these concerns with the patient and as well as with family. They are unable to convince them to stay for further evaluation. The patient is refusing any further care and is leaving AGAINST MEDICAL ADVICE. I have asked him to return as soon as possible to complete their evaluation. I have answered all of their questions. Definitive disposition and diagnosis as appropriate pending reevaluation and review of above. - Related Data Allergies Allergy/AdvReac Type Severity Reaction Status Date / Time No Known Allergies Allergy Verified 10/02/20 07:03 Home Meds: Home Meds Metoprolol Tartrate [Lopressor] 100 mg PO BID 05/13/14 [History] atorvaSTATin [Lipitor] 40 mg PO DAILY 05/13/14 [History] trandolapriL [Mavik] 4 mg PO DAILY 05/13/14 [History] Insulin Lispro [HumaLOG] 50 - 60 unit SUBCUT .Q24 HRS PER PUMP 05/01/15 [History] Isosorbide Mononitrate [Imdur] 60 mg PO DAILY 05/01/17 [History] Aspirin [Lo-Dose Aspirin EC] 81 mg PO DAILY 02/06/18 [History] Nitroglycerin [Nitrostat] 0.4 mg SL ASDIRECTED PRN 02/06/18 [History] Pramipexole Di-HCl [Pramipexole Dihydrochloride] 1 - 2 tab PO BEDTIME 09/28/20 [History] Past Medical History HEENT History: Reports: Cataract, Macular Degeneration Other HEENT History: reading glasses, top partial Cardiovascular History: Reports: CAD, High Cholesterol, Hypertension, RI Respiratory History: Reports: None Gastrointestinal History: Reports: Chronic Diarrhea Genitourinary History: Reports: Prostate Disorder Other Genitourinary History: stage 3 chronic kidney disease, hx prostate cancer Musculoskeletal History: Reports: Arthritis Other Musculoskeletal History: hx fx foot Neurological History: Reports: CVA, Other (See Below) Other Neuro History: stroke in August 2006, restless leg syndrome Psychiatric History: Reports: None Endocrine/Metabolic History: Reports: Diabetes, Type II, Obesity/BMI 30+ Hematologic History: Reports: None Immunologic History: Reports: None Oncologic (Cancer) History: Reports: Prostate Dermatologic History: Reports: None - Infectious Disease History Infectious Disease History: Reports: Chicken Pox, Measles, Mumps - Past Surgical History Head Surgeries/Procedures: Reports: None HEENT Surgical History: Reports: Cataract Surgery Cardiovascular Surgical History: Reports: Coronary Artery Bypass, Coronary Artery Stent, Percutaneous Transluminal Angioplasty Respiratory Surgical History: Reports: None GI Surgical History: Reports: None Male Surgical History: Reports: TURP-Transurethral Resection of Prostate Other Male Surgeries/Procedures: radiation for prostate cancer Endocrine Surgical History: Reports: None Neurological Surgical History: Reports: Lumbar Spine Other Neurological Surgeries/Procedures: hx back surgery Musculoskeletal Surgical History: Reports: Other (See Below) Other Musculoskeletal Surgeries/Procedures:: Back Surgery Other Oncologic Surgeries/Procedures: radiation for prostate cancer Dermatological Surgical History: Reports: None Social & Family History - Family History Family Medical History: Unobtainable - Tobacco Use Tobacco Use Status *Q: Unknown Ever Used Tobacco - Caffeine Use Caffeine Use: Reports: Coffee - Recreational Drug Use Recreational Drug Use: No - Living Situation & Occupation Living situation: Reports: ED ROS GENERAL - Review of Systems Review Of Systems: See Below ED EXAM, GENERAL - Physical Exam Exam: See Below #1 Interpretation EKG Interpretation Comments: EKG: As interpreted by ER physician: Santiago: Nonspecific ST-T wave abnormalities Normal axis No evidence of ST elevation RI Sinus bradycardia heart rate of 52 Chest Xray: Normal cardiac silhouette No infiltrates or effusions identified. No PTX No evidence of acute bony fracture. As interpreted by ER MD: Santiago Course - Vital Signs Last Recorded V/S: Last Vital Signs Temp 97.6 F 10/23/20 12:04 Pulse 47 L 10/23/20 13:03 Resp 16 10/23/20 13:03 BP 95/47 L 10/23/20 13:03 Pulse Ox 94 L 10/23/20 13:03 - Orders/Labs/Meds Orders: Active Orders 24 hr Category Date Time Status EKG Documentation Completion [RC] AM Care 10/23/20 12:14 Active Nitroglycerin [Nitrostat] Med 10/23/20 12:19 Active 0.4 mg SL Q5M PRN Sodium Chloride 0.9% [Normal Saline] 1,000 ml Med 10/23/20 12:21 Active IV .Bolus Sodium Chloride 0.9% [Saline Flush] Med 10/23/20 12:14 Active 10 ml FLUSH ASDIRECTED PRN Sodium Chloride 0.9% [Saline Flush] Med 10/23/20 12:14 Active 2.5 ml FLUSH ASDIRECTED PRN Saline Lock Insert [OM.PC] Stat Oth 10/23/20 12:14 Ordered Medication Orders Sodium Chloride (Normal Saline) 1,000 mls @ 999 mls/hr IV .Bolus ONE Stop: 10/23/20 13:21 Last Admin: 10/23/20 12:35 Dose: 999 mls/hr Documented by: [id number] Nitroglycerin (Nitroglycerin 0.4 Mg Tab.Sl) 0.4 mg SL Q5M PRN PRN Reason: Chest Pain Sodium Chloride (Sodium Chloride 0.9% 10 Ml Syringe) 10 ml FLUSH ASDIRECTED PRN PRN Reason: Keep Vein Open Last Admin: 10/23/20 12:35 Dose: 10 ml Documented by: [id number] Sodium Chloride (Sodium Chloride 0.9% 2.5 Ml Syringe) 2.5 ml FLUSH ASDIRECTED PRN PRN Reason: Keep Vein Open Last Admin: 10/23/20 12:35 Dose: 2.5 ml Documented by: [id number] Labs: Laboratory Tests 10/23/20 10/23/20 10/23/20 Range/Units 12:07 12:07 12:07 WBC 5.81 (4.0-11.0) K/uL RBC 4.28 L (4.50-5.90) M/uL Hgb 13.5 (13.0-17.0) g/dL Hct 39.3 (38.0-50.0) % MCV 91.8 (80.0-98.0) fL MCH 31.5 (27.0-32.0) pg MCHC 34.4 (31.0-37.0) g/dL RDW Std Deviation 48.7 (28.0-62.0) fl RDW Coeff of Thuy 14 (11.0-15.0) % Plt Count 148 L (150-400) K/uL MPV 12.20 H (7.40-12.00) fL Neut % (Auto) 80.0 (48.0-80.0) % Lymph % (Auto) 10.3 L (16.0-40.0) % [place] % (Auto) 7.7 (0.0-15.0) % Eos % (Auto) 1.7 (0.0-7.0) % Baso % (Auto) 0.3 (0.0-1.5) % Neut # (Auto) 4.6 (1.4-5.7) K/uL Lymph # (Auto) 0.6 (0.6-2.4) K/uL [place] # (Auto) 0.5 (0.0-0.8) K/uL Eos # (Auto) 0.1 (0.0-0.7) K/uL Baso # (Auto) 0.0 (0.0-0.1) K/uL Nucleated RBC % 0.0 /100WBC Nucleated RBCs # 0 K/uL D-Dimer, Quantitative 0.97 H (0.0-0.50) mg/L FEU Sodium 135 L (136-148) mmol/L Potassium 5.3 H (3.5-5.1) mmol/L Chloride 101 (98-107) mmol/L Carbon Dioxide 25.3 (21.0-32.0) mmol/L BUN 44 H (7.0-18.0) mg/dL Creatinine 2.3 H (0.8-1.3) mg/dL Est Cr Clr Drug Dosing 22.68 mL/min Estimated GFR (MDRD) 27.9 ml/min Glucose 241 H (74-106) mg/dL Calcium 8.6 (8.5-10.1) mg/dL Total Bilirubin 0.4 (0.2-1.0) mg/dL AST 15 (15-37) IU/L ALT 25 (14-63) IU/L Alkaline Phosphatase 57 (46-116) U/L Troponin I < 0.050 (0.000-0.056) ng/mL B-Natriuretic Peptide (<100) PG/ML Total Protein 6.9 (6.4-8.2) g/dL Albumin 3.6 (3.4-5.0) g/dL Globulin 3.3 (2.6-4.0) g/dL Albumin/Globulin Ratio 1.1 (0.9-1.6) Lipase 40 L (73-393) U/L 10/23/20 Range/Units 12:07 WBC (4.0-11.0) K/uL RBC (4.50-5.90) M/uL Hgb (13.0-17.0) g/dL Hct (38.0-50.0) % MCV (80.0-98.0) fL MCH (27.0-32.0) pg MCHC (31.0-37.0) g/dL RDW Std Deviation (28.0-62.0) fl RDW Coeff of Thuy (11.0-15.0) % Plt Count (150-400) K/uL MPV (7.40-12.00) fL Neut % (Auto) (48.0-80.0) % Lymph % (Auto) (16.0-40.0) % [place] % (Auto) (0.0-15.0) % Eos % (Auto) (0.0-7.0) % Baso % (Auto) (0.0-1.5) % Neut # (Auto) (1.4-5.7) K/uL Lymph # (Auto) (0.6-2.4) K/uL [place] # (Auto) (0.0-0.8) K/uL Eos # (Auto) (0.0-0.7) K/uL Baso # (Auto) (0.0-0.1) K/uL Nucleated RBC % /100WBC Nucleated RBCs # K/uL D-Dimer, Quantitative (0.0-0.50) mg/L FEU Sodium (136-148) mmol/L Potassium (3.5-5.1) mmol/L Chloride (98-107) mmol/L Carbon Dioxide (21.0-32.0) mmol/L BUN (7.0-18.0) mg/dL Creatinine (0.8-1.3) mg/dL Est Cr Clr Drug Dosing mL/min Estimated GFR (MDRD) ml/min Glucose (74-106) mg/dL Calcium (8.5-10.1) mg/dL Total Bilirubin (0.2-1.0) mg/dL AST (15-37) IU/L ALT (14-63) IU/L Alkaline Phosphatase (46-116) U/L Troponin I (0.000-0.056) ng/mL B-Natriuretic Peptide 54 (<100) PG/ML Total Protein (6.4-8.2) g/dL Albumin (3.4-5.0) g/dL Globulin (2.6-4.0) g/dL Albumin/Globulin Ratio (0.9-1.6) Lipase (73-393) U/L Meds: Medications Generic Name Dose Route Start Last Admin Trade Name Freq PRN Reason Stop Dose Admin Sodium Chloride 1,000 mls @ 999 mls/hr 10/23/20 12:21 10/23/20 12:35 Normal Saline IV 10/23/20 13:21 999 mls/hr .Bolus ONE Administration Nitroglycerin 0.4 mg 10/23/20 12:19 Nitroglycerin 0.4 Mg Tab.Sl SL Q5M PRN Chest Pain Sodium Chloride 10 ml 10/23/20 12:14 10/23/20 12:35 Sodium Chloride 0.9% 10 Ml Syringe FLUSH 10 ml ASDIRECTED PRN Administration Keep Vein Open Sodium Chloride 2.5 ml 10/23/20 12:14 10/23/20 12:35 Sodium Chloride 0.9% 2.5 Ml Syringe FLUSH 2.5 ml ASDIRECTED PRN Administration Keep Vein Open Discontinued Medications Generic Name Dose Route Start Last Admin Trade Name Freq PRN Reason Stop Dose Admin Al Hydroxide/Mg Hydroxide 15 0 ml 10/23/20 12:52 ml/ Lidocaine HCl 5 ml PO 10/23/20 12:53 ONETIME ONE Departure - Departure Time of Disposition: 13:21 Disposition: Against Medical Advice 07 Condition: Good Clinical Impression: Atypical chest pain, Left against medical advice - Discharge Information Instructions: Nonspecific Chest Pain, Adult, Angina, [id number] Referrals: Jackson Trevizo MD [Primary Care Provider] - Forms: ED Department Discharge Additional Instructions: You have chosen to leave the hospital AGAINST MEDICAL ADVICE. Follow-up with your doctor as soon as possible for recheck and return to the emergency department for worsening of his symptoms or condition or if you change your mind in any way. As we have discussed, we are concerned about the etiology of your chest pain. Given the limitation of the ER, I am unable to completely rule out a cardiac source of your discomfort. As we have discussed, you will need admission for further evaluation of your discomfort. By leaving AGAINST MEDICAL ADVICE, you run the risk of from heart attack, pulmonary embolism, dissection and other undiagnosed illnesses. We will respect your autonomy and allow you to sign out AGAINST MEDICAL ADVICE, but please return to the ER at any time if your pain worsens, you develop any new or concerning symptoms, you simply change your mind and would prefer admission to the hospital. The following information is given to patients seen in the emergency department who are being discharged to home. This information is to outline your options for follow-up care. We provide all patients seen in our emergency department with a follow-up referral. The need for follow-up, as well as the timing and circumstances, are variable depending upon the specifics of your emergency department visit. If you don't have a primary care physician on staff, we will provide you with a referral. We always advise you to contact your personal physician following an emergency department visit to inform them of the circumstance of the visit and for follow-up with them and/or the need for any referrals to a consulting specialist. The emergency department will also refer you to a specialist when appropriate. This referral assures that you have the opportunity for follow-up care with a specialist. All of these measure are taken in an effort to provide you with optimal care, which includes your follow-up. Under all circumstances we always encourage you to contact your private physician who remains a resource for coordinating your care. When calling for follow-up care, please make the office aware that this follow-up is from your recent emergency room visit. If for any reason you are refused follow-up, please contact the [facility] Emergency Department at and asked to speak to the emergency department charge nurse. [facility] [address] [place] [id number] [facility] [address] [place] [address] Sepsis Event Note (ED) - Evaluation Sepsis Screening Result: No Definite Risk - Focused Exam Vital Signs: Vital Signs Temp Pulse Resp BP BP Pulse Ox 10/23/20 13:03 47 L 16 95/47 L 94 L 10/23/20 12:43 47 L 15 89/47 L 96 10/23/20 12:30 49 L 16 91/47 L 95 10/23/20 12:26 48 L 15 88/43 L 96 10/23/20 12:04 97.6 F 59 L 15 109/41 L 94 L - My Orders Last 24 Hours: My Active Orders 10/23/20 12:14 EKG Documentation Completion [RC] AM Sodium Chloride 0.9% [Saline Flush] 10 ml FLUSH ASDIRECTED PRN Sodium Chloride 0.9% [Saline Flush] 2.5 ml FLUSH ASDIRECTED PRN Saline Lock Insert [OM.PC] Stat 10/23/20 12:19 Nitroglycerin [Nitrostat] 0.4 mg SL Q5M PRN 10/23/20 12:21 Sodium Chloride 0.9% [Normal Saline] 1,000 ml IV .Bolus - Assessment/Plan Last 24 Hours: My Active Orders 10/23/20 12:14 EKG Documentation Completion [RC] AM Sodium Chloride 0.9% [Saline Flush] 10 ml FLUSH ASDIRECTED PRN Sodium Chloride 0.9% [Saline Flush] 2.5 ml FLUSH ASDIRECTED PRN Saline Lock Insert [OM.PC] Stat 10/23/20 12:19 Nitroglycerin [Nitrostat] 0.4 mg SL Q5M PRN 10/23/20 12:21 Sodium Chloride 0.9% [Normal Saline] 1,000 ml IV .Bolus
[2020-10-23] MEDS ORDERED: Sodium Chloride 0.9% 1,000 ML IV ONE (12:21)
[2020-10-23 12:50] VITALS: PULSE 47
[2020-10-23] MEDS ORDERED: Alum Hydrox/Mag Hydrox/Simeth 15 ML, Lidocaine 2% 5 ML PO ONE ×2 (12:52)
--- NOTE | 2020-10-23 13:02 | CR ---
For Patients: As a result of the Century Cures Act, medical imaging exams and procedure reports are released immediately into your electronic medical record. You may view this report before your referring provider. If you have questions, please contact your health care provider. Indication: Chest pain Technique: Chest 1 view Comparison: March 31, 2019 Findings/Impression: Stable cardiomegaly. Status post median sternotomy. Normal pulmonary vasculature. Calcified granuloma right lower field. Remainder of the lungs and pleural spaces are clear. Healed left posterior rib fractures. Dictated by Dodie Khalil MD @ 10/23/2020 1:00:[address] Dodie Khalil @ Oct 23 2020 1:00PM
[2020-10-23 13:05] VITALS: BP 95/47
[2020-10-23 13:06] LABS: BLOOD UREA NITROGEN,BUN 44 mg/dL (7.0-18.0); CARBON DIOXIDE,CO2 25.3 mmol/L (21.0-32.0); CHLORIDE,CL 101 mmol/L (98-107); GLUCOSE RANDOM 241 mg/dL (74-106); LIPASE 40 U/L (73-393); POTASSIUM,K 5.3 mmol/L (3.5-5.1); SODIUM,NA 135 mmol/L (136-148)
== END 2020-10-23 13:30 | disposition left against medical advice (07) ==
LOC: MW.ED 11:57
DX: R07.89 Other chest pain (principal); I25.10 Atherosclerotic heart disease of native coronary artery without angina pectoris; E78.00 Pure hypercholesterolemia, unspecified; I10 Essential (primary) hypertension; I25.2 Old myocardial infarction; E11.9 Type 2 diabetes mellitus without complications; E66.9 Obesity, unspecified; Z68.30 Body mass index [BMI] 30.0-30.9, adult; Z79.82 Long term (current) use of aspirin; Z79.4 Long term (current) use of insulin
CPT/HCPCS: 36415; 71045; 80053; 83690; 83880; 84484; 85025; 85379; 93005; 99285; A9270; J7030; 93010; 99284

== ENCOUNTER 2020-11-26 15:49 | Emergency (ER) | payer MEDICARE, BC ==
--- NOTE | 2020-11-26 16:07 | EDM.PDOC ---
ED HPI GENERAL MEDICAL PROBLEM - General Chief Complaint: Diabetic Complaint Stated Complaint: LOW SUGAR Time Seen by Provider: 11/26/20 15:53 Source of Information: Reports: Patient History Limitations: Reports: No Limitations - History of Present Illness INITIAL COMMENTS - FREE TEXT/NARRATIVE: Is a 75-year-old male brought in by EMS after being found down ditch. Patient is he was outside working and does not remember what happened. History of diabetes and wears an insulin pump and not sure if he gave more than he normally supposed to have. This happened patient before become hypoglycemic. Patient was given dextrose by EMS and sugars have improved to greater than 100. EMS found that he was down in the 40s. Patient is alert awake and answering questions has no complaints with pain or any signs of injuries. - Related Data Allergies Allergy/AdvReac Type Severity Reaction Status Date / Time No Known Allergies Allergy Verified 11/26/20 15:55 Home Meds: Home Meds Metoprolol Tartrate [Lopressor] 75 mg PO BID 05/13/14 [History] atorvaSTATin [Lipitor] 40 mg PO DAILY 05/13/14 [History] trandolapriL [Mavik] 4 mg PO DAILY 05/13/14 [History] Insulin Lispro [HumaLOG] 50 - 60 unit SUBCUT .Q24 HRS PER PUMP 05/01/15 [History] Isosorbide Mononitrate [Imdur] 60 mg PO DAILY 05/01/17 [History] Aspirin [Lo-Dose Aspirin EC] 81 mg PO DAILY 02/06/18 [History] Nitroglycerin [Nitrostat] 0.4 mg SL ASDIRECTED PRN 02/06/18 [History] Pramipexole Di-HCl [Pramipexole Dihydrochloride] 1 - 2 tab PO BEDTIME 09/28/20 [History] Clopidogrel [Plavix] 75 mg PO DAILY 11/26/20 [History] Doxazosin Mesylate [Cardura] 2 mg PO BEDTIME 11/26/20 [History] Pantoprazole [ProTONIX] 40 mg PO DAILY 11/26/20 [History] Tolterodine Tartrate [Tolterodine Tartrate ER] 4 mg PO DAILY 11/26/20 [History] Past Medical History HEENT History: Reports: Cataract, Macular Degeneration Other HEENT History: reading glasses, top partial Cardiovascular History: Reports: CAD, High Cholesterol, Hypertension, [place] Respiratory History: Reports: None Gastrointestinal History: Reports: Chronic Diarrhea Genitourinary History: Reports: Prostate Disorder Other Genitourinary History: stage 3 chronic kidney disease, hx prostate cancer Musculoskeletal History: Reports: Arthritis Other Musculoskeletal History: hx fx foot Neurological History: Reports: CVA, Other (See Below) Other Neuro History: stroke in August 2006, restless leg syndrome Psychiatric History: Reports: None Endocrine/Metabolic History: Reports: Diabetes, Type II, Obesity/BMI 30+ Hematologic History: Reports: None Immunologic History: Reports: None Oncologic (Cancer) History: Reports: Prostate Dermatologic History: Reports: None - Infectious Disease History Infectious Disease History: Reports: Chicken Pox, Measles, Mumps - Past Surgical History Head Surgeries/Procedures: Reports: None HEENT Surgical History: Reports: Cataract Surgery Cardiovascular Surgical History: Reports: Coronary Artery Bypass, Coronary Artery Stent, Percutaneous Transluminal Angioplasty Respiratory Surgical History: Reports: None GI Surgical History: Reports: None Male Surgical History: Reports: TURP-Transurethral Resection of Prostate Other Male Surgeries/Procedures: radiation for prostate cancer Endocrine Surgical History: Reports: None Neurological Surgical History: Reports: Lumbar Spine Other Neurological Surgeries/Procedures: hx back surgery Musculoskeletal Surgical History: Reports: Other (See Below) Other Musculoskeletal Surgeries/Procedures:: Back Surgery Other Oncologic Surgeries/Procedures: radiation for prostate cancer Dermatological Surgical History: Reports: None Social & Family History - Family History Family Medical History: Unobtainable - Tobacco Use Tobacco Use Status *Q: Never Tobacco User Second Hand Smoke Exposure: No - Caffeine Use Caffeine Use: Reports: None - Recreational Drug Use Recreational Drug Use: No - Living Situation & Occupation Living situation: Reports: ED ROS GENERAL - Review of Systems Review Of Systems: See Below Constitutional: Reports: No Symptoms HEENT: Reports: No Symptoms Respiratory: Reports: No Symptoms Cardiovascular: Reports: No Symptoms Endocrine: Reports: No Symptoms GI/Abdominal: Reports: No Symptoms : Reports: No Symptoms Musculoskeletal: Reports: No Symptoms Skin: Reports: No Symptoms Neurological: Reports: No Symptoms Psychiatric: Reports: No Symptoms Hematologic/Lymphatic: Reports: No Symptoms Immunologic: Reports: No Symptoms ED EXAM GENERAL NO PERIP PULSE - Physical Exam Exam: See Below Exam Limited By: No Limitations General Appearance: Alert, WD/WN, No Apparent Distress Eye Exam: Bilateral Eye: EOMI, PERRL Respiratory/Chest: No Respiratory Distress, Lungs Clear, Normal Breath Sounds Cardiovascular: Normal Peripheral Pulses, Regular Rate, Rhythm GI/Abdominal: Normal Bowel Sounds, Soft, Non-Tender Neurological: Alert, Oriented, CN II-XII Intact, Normal Cognition, Normal Gait #1 Interpretation EKG Date: 11/26/20 Time: 16:00 Rhythm: NSR Rate (Beats/Min): 60 ST-T: Normal Course - Vital Signs Last Recorded V/S: Last Vital Signs Temp 96.4 F L 11/26/20 15:50 Pulse 62 11/26/20 15:50 Resp 16 11/26/20 15:50 BP 181/85 H 11/26/20 15:50 Pulse Ox 96 11/26/20 15:50 - Orders/Labs/Meds Orders: Active Orders 24 hr Category Date Time Status GLUCOSE,POC [POC] Stat Lab 11/26/20 17:16 Ordered Labs: Laboratory Tests 11/26/20 11/26/20 Range/Units 16:00 16:00 WBC 5.86 (4.0-11.0) K/uL RBC 3.90 L (4.50-5.90) M/uL Hgb 12.1 L (13.0-17.0) g/dL Hct 35.7 L (38.0-50.0) % MCV 91.5 (80.0-98.0) fL MCH 31.0 (27.0-32.0) pg MCHC 33.9 (31.0-37.0) g/dL RDW Std Deviation 48.1 (28.0-62.0) fl RDW Coeff of Thuy 14 (11.0-15.0) % Plt Count 114 L (150-400) K/uL MPV 11.50 (7.40-12.00) fL Neut % (Auto) 88.1 H (48.0-80.0) % Lymph % (Auto) 5.3 L (16.0-40.0) % Sawyer % (Auto) 5.6 (0.0-15.0) % Eos % (Auto) 0.7 (0.0-7.0) % Baso % (Auto) 0.3 (0.0-1.5) % Neut # (Auto) 5.2 (1.4-5.7) K/uL Lymph # (Auto) 0.3 L (0.6-2.4) K/uL Sawyer # (Auto) 0.3 (0.0-0.8) K/uL Eos # (Auto) 0.0 (0.0-0.7) K/uL Baso # (Auto) 0.0 (0.0-0.1) K/uL Nucleated RBC % 0.0 /100WBC Nucleated RBCs # 0 K/uL Sodium 139 (136-148) mmol/L Potassium 4.7 (3.5-5.1) mmol/L Chloride 106 (98-107) mmol/L Carbon Dioxide 27.3 (21.0-32.0) mmol/L BUN 31 H (7.0-18.0) mg/dL Creatinine 1.6 H (0.8-1.3) mg/dL Est Cr Clr Drug Dosing 32.60 mL/min Estimated GFR (MDRD) 42.5 ml/min Glucose 119 H (74-106) mg/dL Calcium 9.1 (8.5-10.1) mg/dL Phosphorus 3.1 (2.6-4.7) mg/dL Magnesium 1.7 L (1.8-2.4) mg/dL Total Bilirubin 0.3 (0.2-1.0) mg/dL AST 18 (15-37) IU/L ALT 25 (14-63) IU/L Alkaline Phosphatase 52 (46-116) U/L Total Protein 6.2 L (6.4-8.2) g/dL Albumin 3.4 (3.4-5.0) g/dL Globulin 2.8 (2.6-4.0) g/dL Albumin/Globulin Ratio 1.2 (0.9-1.6) - Re-Assessments/Exams Free Text/Narrative Re-Assessment/Exam: 11/26/20 17:56 Patient glucose has been stable in the ED. Likely this is excellent. Patient can restart his pump and was told to keep down his fingerstick while home. Departure - Departure Time of Disposition: 17:56 Disposition: Home, Self-Care 01 Condition: Good Clinical Impression: Hypoglycemia - Discharge Information *PRESCRIPTION DRUG MONITORING PROGRAM REVIEWED*: Not Applicable *COPY OF PRESCRIPTION DRUG MONITORING REPORT IN PATIENT JASON: Not Applicable Instructions: Hypoglycemia Referrals: PCP,None [Primary Care Provider] - Forms: ED Department Discharge Additional Instructions: The following information is given to patients seen in the emergency department who are being discharged to home. This information is to outline your options for follow-up care. We provide all patients seen in our emergency department with a follow-up referral. The need for follow-up, as well as the timing and circumstances, are variable depending upon the specifics of your emergency department visit. If you don't have a primary care physician on staff, we will provide you with a referral. We always advise you to contact your personal physician following an emergency department visit to inform them of the circumstance of the visit and for follow-up with them and/or the need for any referrals to a consulting specialist. The emergency department will also refer you to a specialist when appropriate. This referral assures that you have the opportunity for follow-up care with a specialist. All of these measure are taken in an effort to provide you with optimal care, which includes your follow-up. Under all circumstances we always encourage you to contact your private physician who remains a resource for coordinating your care. When calling for follow-up care, please make the office aware that this follow-up is from your recent emergency room visit. If for any reason you are refused follow-up, please contact the [facility] Emergency Department at and asked to speak to the emergency department charge nurse. Please follow up with your primary care physician. If you do not have a primary care physician, see below: [facility] [address] [place] [id number] [facility] [address] [place] [id number] You were seen today for your low blood glucose level. Recommend keep an eye on it at home continue to check it. Make sure you continue to eat after the meals of insulin. You can restart your insulin pump. You have any other concerns or complaints please return to ED immediately. Sepsis Event Note (ED) - Evaluation Sepsis Screening Result: No Definite Risk - Focused Exam Vital Signs: Vital Signs Temp Pulse Resp BP Pulse Ox 11/26/20 15:50 96.4 F L 62 16 181/85 H 96 - My Orders Last 24 Hours: My Active Orders 11/26/20 17:16 GLUCOSE,POC [POC] Stat - Assessment/Plan Last 24 Hours: My Active Orders 11/26/20 17:16 GLUCOSE,POC [POC] Stat Plan: Patient is a 75-year-old male who presents today after being found hypoglycemic in addition. Unclear patient fell and hit his head he is awake now has no signs or complaints of any pain or injuries. Patient has been greater than 100 we will continue to monitor longer states normal we can restart the insulin pump and discharged home.
[2020-11-26 16:27] LABS: CARBON DIOXIDE,CO2 27.3 mmol/L (21.0-32.0); POTASSIUM,K 4.7 mmol/L (3.5-5.1)
--- NOTE | 2020-11-26 17:04 | CR ---
INDICATION: Found down. Hypoglycemia. TECHNIQUE: Chest 1 views COMPARISON: 10/23/2020 FINDINGS: Cardiovascular and mediastinum: Heart size and vasculature are normal in caliber and appearance. Lungs and pleural spaces: Lungs are clear. No sign of infiltrate or mass. No sign of pleural effusion. No pneumothorax. Bones and soft tissues: No significant findings. IMPRESSION: No acute findings and no significant changes from the prior exam. Dictated by Domenic Smith MD @ 11/26/2020 5:02:[address] Domenic Smith @ Nov 26 2020 5:02PM
--- NOTE | 2020-11-26 17:08 | CT ---
INDICATION: Found down. Hypoglycemia. Possible head injury. TECHNIQUE: CT of the head without contrast. Coronal and sagittal reformats are included. COMPARISON: None. FINDINGS: No acute intracranial hemorrhage. No acute infarction. No mass effect or midline shift. No hydrocephalus or extra-axial collections. Mild to moderate generalized parenchymal volume loss. Patchy hypoattenuation within the supratentorial white matter, typical for chronic microvascular ischemic changes. Thick vascular calcifications carotid siphons. No acute osseous abnormalities. Mastoid air cells and paranasal sinuses are clear. Normal soft tissues. IMPRESSION: 1. No acute intracranial pathology. 2. Chronic intracranial findings as above. Please note that all CT scans at this facility use dose modulation, iterative reconstruction, and/or weight-based dosing when appropriate to reduce radiation dose to as low as reasonably achievable. Dictated by Rubio Wilson MD @ 11/26/2020 5:06:[address] Rubio Wilson @ Nov 26 2020 5:06PM
--- NOTE | 2020-11-26 17:14 | CT ---
INDICATION: Found down. Possible neck injury. TECHNIQUE: CT of the cervical spine without contrast. Coronal and sagittal reformats are included. COMPARISON: None. FINDINGS: No acute fracture or traumatic malalignment of the cervical spine. Craniocervical junction alignment is maintained. Multilevel cervical spondylosis. C2-3 trace retrolisthesis. Shallow disc osteophyte complex with partial calcification of the posterior annulus. C6-7 advanced disc degeneration and trace retrolisthesis. Broad-based disc osteophyte complex. Bilateral uncovertebral arthrosis contributes to advanced bilateral neural foraminal stenosis. No high grade spinal canal stenosis as far as visualized. Thick vascular calcifications carotid siphons. Patchy ground-glass opacities within the upper lungs. IMPRESSION: 1. No acute fracture or traumatic malalignment of the cervical spine. Please note that all CT scans at this facility use dose modulation, iterative reconstruction, and/or weight-based dosing when appropriate to reduce radiation dose to as low as reasonably achievable. Dictated by Rubio Wilson MD @ 11/26/2020 5:12:[address] Rubio Wilson @ Nov 26 2020 5:12PM
[2020-11-26 18:33] VITALS: BP 185/82; PULSE 58
== END 2020-11-26 18:18 | disposition home or self-care (01) ==
LOC: MW.ED 15:49
DX: E11.649 Type 2 diabetes mellitus with hypoglycemia without coma (principal); I25.10 Atherosclerotic heart disease of native coronary artery without angina pectoris; E78.00 Pure hypercholesterolemia, unspecified; I10 Essential (primary) hypertension; I25.2 Old myocardial infarction; E66.9 Obesity, unspecified; Z68.30 Body mass index [BMI] 30.0-30.9, adult; Z79.4 Long term (current) use of insulin; Z79.82 Long term (current) use of aspirin; Z79.02 Long term (current) use of antithrombotics/antiplatelets; Z79.899 Other long term (current) drug therapy
CPT/HCPCS: 36415; 70450; 70450-26; 71045; 71045-26; 72125; 72125-26; 80053; 82947; 83735; 84100; 85025; 93005; 99285-25

== ENCOUNTER 2022-02-23 | Emergency (ER) | payer MEDICARE, BC ==
[2022-02-23] MEDS ORDERED: Iopamidol 755 Mg/ML 100 ML Bottle IV ONE (00:01)
[2022-02-23] MEDS ORDERED: Sodium Chloride 0.9% 1,000 ML IV ONE (00:47)
[2022-02-23] MEDS ORDERED: Morphine 4 MG/ML Syringe IVPUSH ONE (00:48)
[2022-02-23] MEDS ORDERED: Ondansetron 4 MG/2 ML SDV IVPUSH ONE (00:48)
[2022-03-29 07:06] LABS: BLOOD UREA NITROGEN,BUN 43 mg/dL (7.0-18.0); CARBON DIOXIDE,CO2 24.7 mmol/L (21.0-32.0); CHLORIDE,CL 104 mmol/L (98-107); ESTIMATED GFR 42 mL/min (>60); GLUCOSE RANDOM 197 mg/dL (74-106); POTASSIUM,K 4.1 mmol/L (3.5-5.1); SODIUM,NA 139 mmol/L (136-148)
[2022-03-29 07:07] LABS: LIPASE 47 U/L (73-393)
== END 2022-02-23 06:00 | disposition home or self-care (01) ==
LOC: MW.ED
DX: K56.7 Ileus, unspecified (principal); E11.9 Type 2 diabetes mellitus without complications; I10 Essential (primary) hypertension; Z90.49 Acquired absence of other specified parts of digestive tract; Z95.1 Presence of aortocoronary bypass graft; Z79.4 Long term (current) use of insulin; Z79.899 Other long term (current) drug therapy; Z20.822 Contact with and (suspected) exposure to COVID-19
CPT/HCPCS: 36415; 74177; 80053; 81001; 83605; 83690; 84484; 85025; 96361; 96374; 96375; 99284; J2270; J2405; J7030; Q9967; U0002

== ENCOUNTER 2022-03-29 14:17 | Emergency (ER) | payer MEDICARE, BC ==
[2022-03-29] MEDS ORDERED: Sodium Chloride 0.9% 10 ML Syringe FLUSH PRN (14:38)
[2022-03-29] MEDS ORDERED: Sodium Chloride 0.9% 2.5 ML Syringe FLUSH PRN (14:38)
[2022-03-29 15:28] LABS: CARBON DIOXIDE,CO2 27.4 mmol/L (21.0-32.0); POTASSIUM,K 4.1 mmol/L (3.5-5.1)
[2022-03-29 16:21] VITALS: BP 130/70; PULSE 78
== END 2022-03-29 16:19 | disposition home or self-care (01) ==
LOC: MW.ED 14:17
DX: R55 Syncope and collapse (principal); S20.211A Contusion of right front wall of thorax, initial encounter; I25.10 Atherosclerotic heart disease of native coronary artery without angina pectoris; E78.00 Pure hypercholesterolemia, unspecified; I25.2 Old myocardial infarction; I12.9 Hypertensive chronic kidney disease with stage 1 through stage 4 chronic kidney disease, or unspecified chronic kidney disease; E11.22 Type 2 diabetes mellitus with diabetic chronic kidney disease; N18.30 Chronic kidney disease, stage 3 unspecified; M19.90 Unspecified osteoarthritis, unspecified site; E66.9 Obesity, unspecified; Z68.33 Body mass index [BMI] 33.0-33.9, adult; Z79.4 Long term (current) use of insulin; Z79.899 Other long term (current) drug therapy; W00.0XXA Fall on same level due to ice and snow, initial encounter
CPT/HCPCS: 36415; 71045; 80048; 84484; 85025; 93005; 99285; J3490

== ENCOUNTER 2022-06-28 14:58 | Emergency (ER) | payer MEDICARE, BC | END 2022-06-28 16:59 | disposition left against medical advice (07) | LOC: MW.ED 14:58 | DX: Z53.21 Procedure and treatment not carried out due to patient leaving prior to being seen by health care provider (principal) ==

== ENCOUNTER 2022-07-11 01:25 | Observation (INO) | payer MEDICARE, BC ==
[2022-07-11 02:47] LABS: CORONAVIRUS COVID-19 NAA POSITIVE (NEGATIVE); INFLUENZA A NAA NEGATIVE (NEGATIVE); INFLUENZA B NAA NEGATIVE (NEGATIVE); RESPIRATORY SYNCYTIAL VIR NAA NEGATIVE (NEGATIVE)
[2022-07-11 02:48] LABS: CARBON DIOXIDE,CO2 26.1 mmol/L (21.0-32.0); POTASSIUM,K 3.9 mmol/L (3.5-5.1)
[2022-07-11] MEDS ORDERED: Lactated Ringers 1,000 ML IV SCH (03:00)
[2022-07-11] MEDS ORDERED: Iopamidol 755 MG/ML 500 ML Multipack Bottle IVPUSH ONE (03:08)
[2022-07-11] MEDS ORDERED: Heparin Sodium/0.45% NaCl 500 ML IV SCH ×2 (06:30→08:15)
[2022-07-11 07:05] LABS: CARBON DIOXIDE,CO2 27.1 mmol/L (21.0-32.0); POTASSIUM,K 4.2 mmol/L (3.5-5.1)
[2022-07-11] MEDS ORDERED: Heparin Sodium 5,000 Units/ML Vial IVPUSH ONE (07:33)
[2022-07-11] MEDS ORDERED: Heparin Sodium 5,000 Units/ML Vial IVPUSH PRN (08:05)
[2022-07-11] MEDS ORDERED: Sodium Chloride 0.9% 2.5 ML Syringe FLUSH PRN (08:06)
[2022-07-11] MEDS ORDERED: Sodium Chloride 0.9% 10 ML Syringe FLUSH PRN (08:06)
[2022-07-11] MEDS ORDERED: Albuterol/Ipratropium 3.0-0.5 MG/3 ML Neb Soln NEB PRN (08:06)
[2022-07-11] MEDS ORDERED: Acetaminophen 325 MG Tab PO PRN (08:06)
[2022-07-11] MEDS ORDERED: Ondansetron 4 MG/2 ML SDV IVPUSH PRN (08:06)
[2022-07-11] MEDS ORDERED: TRANDOLAPRIL 4 MG PO SCH (09:00)
[2022-07-11] MEDS ORDERED: Tolterodine 2 MG Cap.ER PO SCH (09:00)
[2022-07-11] MEDS ORDERED: Isosorbide Mononitrate 60 MG Tab.ER PO SCH (09:00)
[2022-07-11] MEDS ORDERED: Metoprolol Tartrate 50 MG Tab PO SCH (09:00)
[2022-07-11] MEDS ORDERED: Aspirin 81 MG Tab.EC PO SCH (09:00)
[2022-07-11 09:29] VITALS: BP 158/86; PULSE 68
[2022-07-11] MEDS ORDERED: atorvaSTATin 40 MG Tab PO SCH (21:00)
[2022-07-11] MEDS ORDERED: Pramipexole 0.25 MG Tab PO SCH (21:00)
== END 2022-07-11 12:00 ==
LOC: MW.ED 01:25 → MW.MS 06:35
PROVIDERS: ADMIT Internal Medicine; ATTEND Internal Medicine
DX: R07.81 Pleurodynia (principal); R94.31 Abnormal electrocardiogram [ECG] [EKG]; I25.2 Old myocardial infarction; I25.10 Atherosclerotic heart disease of native coronary artery without angina pectoris; E11.22 Type 2 diabetes mellitus with diabetic chronic kidney disease; I12.9 Hypertensive chronic kidney disease with stage 1 through stage 4 chronic kidney disease, or unspecified chronic kidney disease; N18.30 Chronic kidney disease, stage 3 unspecified; E78.00 Pure hypercholesterolemia, unspecified; M19.90 Unspecified osteoarthritis, unspecified site; K92.2 Gastrointestinal hemorrhage, unspecified; I26.99 Other pulmonary embolism without acute cor pulmonale; Z86.73 Personal history of transient ischemic attack (TIA), and cerebral infarction without residual deficits; Z85.46 Personal history of malignant neoplasm of prostate; Z95.1 Presence of aortocoronary bypass graft; Z79.4 Long term (current) use of insulin; Z79.899 Other long term (current) drug therapy; Z88.8 Allergy status to other drugs, medicaments and biological substances
CPT/HCPCS: 0241U; 36415; 71045; 71275; 80053; 82947; 83690; 83880; 84484; 85025; 85610; 85730; 93005; 96361; 96365; 96374; 96375; 99285; A9270; G0378; J1644; J7120; Q9967; 93010; 96376

== ENCOUNTER 2022-07-23 11:10 | Inpatient (IN) | payer MEDICARE, BC ==
[2022-07-23 12:21] LABS: CARBON DIOXIDE,CO2 25.6 mmol/L (21.0-32.0); POTASSIUM,K 4.2 mmol/L (3.5-5.1)
[2022-07-23 12:28] LABS: CORONAVIRUS COVID-19 NAA NEGATIVE (NEGATIVE); INFLUENZA A NAA NEGATIVE (NEGATIVE); INFLUENZA B NAA NEGATIVE (NEGATIVE); RESPIRATORY SYNCYTIAL VIR NAA NEGATIVE (NEGATIVE)
[2022-07-23] MEDS: Lactated Ringers 1,000 ML IV SCH ×2 (13:52→18:43)
[2022-07-23] MEDS ORDERED: Lactated Ringers 1,000 ML IV SCH (18:15)
[2022-07-23] MEDS ORDERED: Lactated Ringers 1,000 ML IV ONE (19:56)
[2022-07-23] MEDS ORDERED: Acetaminophen 500 MG Tab PO PRN (19:57)
[2022-07-23] MEDS ORDERED: 50% Dextrose in Water 50 ML Syringe IVPUSH PRN (19:58)
[2022-07-23] MEDS ORDERED: Loperamide 2 MG Cap PO PRN (19:58)
[2022-07-23] MEDS ORDERED: Glucagon,Human Recombinant 1 MG Vial IM PRN (19:58)
[2022-07-23] MEDS ORDERED: Insulin Glargine,Hum.Rec.Anlog 100 UNIT/ML 3 ML Pen SUBCUT SCH (21:00)
[2022-07-23] MEDS: Metoprolol Succinate 25 MG Tab.ER PO SCH (21:10)
[2022-07-24] MEDS ORDERED: Acetaminophen/Codeine 300-30 MG Tab PO PRN (00:28)
[2022-07-24] MEDS ORDERED: diphenhydrAMINE 25 MG Cap PO PRN (00:28)
[2022-07-24] MEDS ORDERED: Insulin Glargine,Hum.Rec.Anlog 100 UNIT/ML 3 ML Pen SUBCUT ONE (06:41)
[2022-07-24] MEDS ORDERED: Insulin Aspart 100 Units/ML 3 ML Pen SUBCUT ONE (06:41)
[2022-07-24] MEDS ORDERED: Sodium Chloride 0.9% 1,000 ML IV SCH (06:45)
[2022-07-24 08:11] LABS: CARBON DIOXIDE,CO2 14.4 mmol/L (21.0-32.0); POTASSIUM,K 5.2 mmol/L (3.5-5.1)
[2022-07-24] MEDS: Metoprolol Succinate 25 MG Tab.ER PO SCH (10:33)
[2022-07-24] MEDS: Insulin Aspart 100 Units/ML 3 ML Pen SUBCUT SCH ×3 (10:40→16:25)
[2022-07-24] MEDS ORDERED: Magnesium Sulfate (4.06 MEQ/ML) 5 GM/10 ML SDV IV ONE (11:24)
[2022-07-24] MEDS ORDERED: Magnesium Sulfate/Water 2 GM in Premix Bag 1 BAG IV ONE (11:45)
[2022-07-24] MEDS ORDERED: Aspirin 81 MG Tab.EC PO SCH (12:15)
[2022-07-24] MEDS ORDERED: Isosorbide Mononitrate 60 MG Tab.ER PO SCH (12:15)
[2022-07-24] MEDS ORDERED: Cyanocobalamin (Vitamin B12) 500 MCG Tab PO SCH (12:15)
[2022-07-24] MEDS ORDERED: TRANDOLAPRIL 4 MG PO SCH (12:15)
[2022-07-24] MEDS ORDERED: Tolterodine 2 MG Cap.ER PO SCH (12:15)
[2022-07-24] MEDS ORDERED: Chlorthalidone 25 MG Tab PO SCH (12:15)
[2022-07-24] MEDS ORDERED: Folic Acid 1 MG Tab PO SCH (12:15)
[2022-07-24] MEDS ORDERED: Insulin Regular in 0.9 % NACL 100 ML IV SCH ×2 (12:30→12:45)
[2022-07-24] MEDS ORDERED: 50% Dextrose in Water 50 ML Syringe IVPUSH PRN (12:38)
[2022-07-24] MEDS ORDERED: Glucagon,Human Recombinant 1 MG Vial IM PRN (12:38)
[2022-07-24] MEDS ORDERED: Insulin Regular, Human 100 Units/ML 10 ML Vial IVPUSH ONE (12:38)
[2022-07-24] MEDS ORDERED: LORazepam 0.5 MG Tab PO STA (13:23)
[2022-07-24] MEDS ORDERED: Norepinephrine Bit/D5W Premix 250 ML ONE (13:51)
[2022-07-24] MEDS ORDERED: LORazepam 0.5 MG Tab PO PRN (14:00)
[2022-07-24] MEDS ORDERED: Norepinephrine Bit/D5W Premix 250 ML IV SCH (14:00)
[2022-07-24 14:26] LABS: CARBON DIOXIDE,CO2 15.3 mmol/L (21.0-32.0); POTASSIUM,K 4.8 mmol/L (3.5-5.1)
[2022-07-24] MEDS ORDERED: Aspirin 81 MG Tab.Chew PO STA (14:38)
[2022-07-24] MEDS ORDERED: Dextrose 5%-0.45% NaCl 1,000 ML IV SCH (16:30)
[2022-07-24] MEDS ORDERED: atorvaSTATin 40 MG Tab PO SCH (21:00)
[2022-07-24] MEDS ORDERED: Metoprolol Tartrate 50 MG Tab PO SCH (21:00)
[2022-07-24] MEDS ORDERED: Pramipexole 0.25 MG Tab PO SCH (21:00)
[2022-07-24 21:15] VITALS: BP 128/49; PULSE 81
[2022-07-24] MEDS ORDERED: Lactated Ringers 1,000 ML IV SCH (21:30)
== END 2022-07-24 20:43 | DRG 312 ==
LOC: MW.ED 11:10 → MW.MS 18:57 → MW.ICU 07-24 11:54 → OBSVTOIN 07-24 17:14
PROVIDERS: ADMIT Internal Medicine; ATTEND Internal Medicine
DX: R00.1 Bradycardia, unspecified (principal); I95.1 Orthostatic hypotension; E11.10 Type 2 diabetes mellitus with ketoacidosis without coma; E87.1 Hypo-osmolality and hyponatremia; E87.5 Hyperkalemia; E83.42 Hypomagnesemia; K62.7 Radiation proctitis; E66.9 Obesity, unspecified; I25.10 Atherosclerotic heart disease of native coronary artery without angina pectoris; Z20.822 Contact with and (suspected) exposure to COVID-19; I12.9 Hypertensive chronic kidney disease with stage 1 through stage 4 chronic kidney disease, or unspecified chronic kidney disease; E11.22 Type 2 diabetes mellitus with diabetic chronic kidney disease; Z95.5 Presence of coronary angioplasty implant and graft; Z95.828 Presence of other vascular implants and grafts; E78.00 Pure hypercholesterolemia, unspecified; N18.30 Chronic kidney disease, stage 3 unspecified; G25.81 Restless legs syndrome; M19.90 Unspecified osteoarthritis, unspecified site; Z85.46 Personal history of malignant neoplasm of prostate; Z95.1 Presence of aortocoronary bypass graft; Z86.73 Personal history of transient ischemic attack (TIA), and cerebral infarction without residual deficits; Z86.16 Personal history of COVID-19; Z86.711 Personal history of pulmonary embolism; Z79.01 Long term (current) use of anticoagulants; Z88.8 Allergy status to other drugs, medicaments and biological substances; Z79.4 Long term (current) use of insulin; Z79.82 Long term (current) use of aspirin; Z79.899 Other long term (current) drug therapy; Z98.49 Cataract extraction status, unspecified eye
CPT/HCPCS: 0241U; 36415; 36600; 51701; 51702; 71045; 71250; 74176; 80048; 80053; 82550; 82800; 82803; 82947; 83605; 83690; 83735; 83880; 84100; 84443; 84484; 85025; 85610; 87040; 93005; 93971; 93010; 99285; A9270-GY; J1815; J1815-GY; J3475; J3490; J7030; J7042; J7120

== ENCOUNTER 2022-09-10 19:00 | Emergency (ER) | payer MEDICARE, BC ==
[2022-09-10] MEDS ORDERED: Insulin Glargine,Hum.Rec.Anlog 100 UNIT/ML 3 ML Pen SUBCUT STA (19:53)
[2022-09-10 20:01] VITALS: BP 169/70; PULSE 65
== END 2022-09-10 21:10 | disposition home or self-care (01) ==
LOC: MW.ED 19:00
DX: Z76.0 Encounter for issue of repeat prescription (principal); I12.9 Hypertensive chronic kidney disease with stage 1 through stage 4 chronic kidney disease, or unspecified chronic kidney disease; E11.22 Type 2 diabetes mellitus with diabetic chronic kidney disease; N18.30 Chronic kidney disease, stage 3 unspecified; I25.2 Old myocardial infarction; E78.00 Pure hypercholesterolemia, unspecified; E66.9 Obesity, unspecified; Z68.30 Body mass index [BMI] 30.0-30.9, adult; Z79.4 Long term (current) use of insulin; Z88.8 Allergy status to other drugs, medicaments and biological substances; Z79.899 Other long term (current) drug therapy; Z86.73 Personal history of transient ischemic attack (TIA), and cerebral infarction without residual deficits
CPT/HCPCS: 99281; A9270; 99283

== ENCOUNTER 2022-09-11 13:52 | Emergency (ER) | payer MEDICARE, BC ==
[2022-09-11] MEDS ORDERED: Morphine 4 MG/ML Syringe IVPUSH ONE (14:33)
[2022-09-11] MEDS ORDERED: Ondansetron 4 MG/2 ML SDV IVPUSH ONE (14:33)
[2022-09-11 15:19] LABS: CARBON DIOXIDE,CO2 24.9 mmol/L (21.0-32.0); POTASSIUM,K 4.1 mmol/L (3.5-5.1)
[2022-09-11 18:12] VITALS: BP 137/64; PULSE 72
== END 2022-09-11 15:09 | disposition home or self-care (01) ==
LOC: MW.ED 13:52
DX: M54.50 Low back pain, unspecified (principal); I25.10 Atherosclerotic heart disease of native coronary artery without angina pectoris; E78.00 Pure hypercholesterolemia, unspecified; I25.2 Old myocardial infarction; E11.22 Type 2 diabetes mellitus with diabetic chronic kidney disease; I12.9 Hypertensive chronic kidney disease with stage 1 through stage 4 chronic kidney disease, or unspecified chronic kidney disease; N18.30 Chronic kidney disease, stage 3 unspecified; E66.9 Obesity, unspecified; Z79.4 Long term (current) use of insulin; Z79.01 Long term (current) use of anticoagulants; Z79.899 Other long term (current) drug therapy; Z88.8 Allergy status to other drugs, medicaments and biological substances; Z95.1 Presence of aortocoronary bypass graft; Z86.73 Personal history of transient ischemic attack (TIA), and cerebral infarction without residual deficits; Z86.711 Personal history of pulmonary embolism
CPT/HCPCS: 36415; 72131; 80053; 83605; 85025; 85610; 85730; 93925; 96374; 96375; 99284; J2270; J2405

== ENCOUNTER 2022-09-23 08:59 | Emergency (ER) | payer MEDICARE, BC ==
[2022-09-23 11:21] LABS: APPEARANCE,URINE CLEAR; BILIRUBIN,URINE NEGATIVE (NEGATIVE); COLOR,URINE YELLOW; GLUCOSE,URINE NEGATIVE (NEGATIVE); KETONES,URINE NEGATIVE (NEGATIVE); LEUKOCYTE ESTERASE,URINE NEGATIVE (NEGATIVE); NITRITE,URINE NEGATIVE (NEGATIVE); OCCULT BLOOD,URINE NEGATIVE (NEGATIVE); PROTEIN,URINE TRACE mg/dL (NEGATIVE); UROBILINOGEN,URINE 0.2 EU/dL (<2.0)
[2022-09-23 11:30] LABS: BACTERIA,URINE FEW (NEGATIVE); EPITHELIAL CELLS,URINE FEW (NONE-FEW); MUCUS,URINE MODERATE (NONE-MOD); RBC,URINE NONE SEEN (0-2/HPF); SQUAMOUS EPITHELIAL CELLS,UR FEW; WBC,URINE NONE SEEN (0-5/HPF)
[2022-09-23 18:35] VITALS: BP 179/79; PULSE 74
== END 2022-09-23 12:50 | disposition home or self-care (01) ==
LOC: MW.ED 08:59
DX: R35.0 Frequency of micturition (principal); I25.10 Atherosclerotic heart disease of native coronary artery without angina pectoris; I12.9 Hypertensive chronic kidney disease with stage 1 through stage 4 chronic kidney disease, or unspecified chronic kidney disease; E11.22 Type 2 diabetes mellitus with diabetic chronic kidney disease; N18.30 Chronic kidney disease, stage 3 unspecified; I25.2 Old myocardial infarction; E66.9 Obesity, unspecified; Z68.34 Body mass index [BMI] 34.0-34.9, adult; Z95.1 Presence of aortocoronary bypass graft; Z88.8 Allergy status to other drugs, medicaments and biological substances; Z79.01 Long term (current) use of anticoagulants; Z79.899 Other long term (current) drug therapy; Z79.4 Long term (current) use of insulin; Z86.73 Personal history of transient ischemic attack (TIA), and cerebral infarction without residual deficits
CPT/HCPCS: 81001; 99283; 99284

== ENCOUNTER 2023-06-16 00:59 | Observation (INO) | payer MEDICARE, BC ==
[2023-06-16] MEDS ORDERED: Morphine 4 MG/ML Syringe ONE ×2 (01:10→03:14)
[2023-06-16] MEDS ORDERED: Sodium Chloride 0.9% 2.5 ML Syringe FLUSH PRN (01:11)
[2023-06-16] MEDS ORDERED: Sodium Chloride 0.9% 10 ML Syringe FLUSH PRN (01:11)
[2023-06-16] MEDS ORDERED: Morphine 4 MG/ML Syringe IVPUSH STA (01:12)
[2023-06-16] MEDS ORDERED: Iopamidol 755 MG/ML 500 ML Multipack Bottle IVPUSH STA (01:14)
[2023-06-16] MEDS ORDERED: Morphine 4 MG/ML Syringe IVPUSH ONE (01:15)
[2023-06-16 01:18] LABS: BASOPHILS ABSOLUTE AUTO 0.05 K/uL (0.00-0.20); BASOPHILS PERCENT AUTO 0.5 % (0.0-1.0); EOSINOPHILS ABSOLUTE AUTO 0.09 K/uL (0.00-0.45); EOSINOPHILS PERCENT AUTO 0.9 % (0.0-6.0); HEMATOCRIT 46.8 % (42.0-52.0); HEMOGLOBIN 15.9 g/dL (14.0-18.0); IMMATURE GRAN ABSOLUTE AUTO 0.06 K/uL (0.00-0.05); IMMATURE GRAN PERCENT AUTO 0.6 % (0.0-0.4); LYMPHOCYTES ABSOLUTE AUTO 0.69 K/uL (1.00-4.80); LYMPHOCYTES PERCENT AUTO 6.7 % (24.0-44.0); MEAN CORPUSCULAR HEMOGLOBIN 31.5 pg (28.0-32.0); MEAN CORPUSCULAR VOLUME 92.7 fL (83.0-99.0); MEAN PLATELET VOLUME 10.2 fL (9.4-12.4); MONOCYTES ABSOLUTE AUTO 0.73 K/uL (0.00-0.80); MONOCYTES PERCENT AUTO 7.1 % (0.0-8.0); NEUTROPHILS ABSOLUTE AUTO 8.62 K/uL (1.80-7.70); NEUTROPHILS PERCENT AUTO 84.2 % (41.0-71.0); PLATELET COUNT,PLT 156 K/uL (150-400); RED BLOOD CELL COUNT 5.05 M/uL (4.52-5.90); WHITE BLOOD CELL COUNT,WBC 10.24 K/uL (3.9-11.3)
[2023-06-16 01:25] LABS: INR 1.04 (0.86-1.11)
[2023-06-16 01:38] LABS: ALBUMIN 4.2 g/dL (3.4-5.0); BILIRUBIN TOTAL 0.3 mg/dL (0.2-1.0); CALCIUM 9.5 mg/dL (8.5-10.1); CARBON DIOXIDE,CO2 26.5 mmol/L (21.0-32.0); CREATININE 1.8 mg/dL (0.8-1.3); EST CRCL DRUG DOSING (CG) 33.25 mL/min; PROTEIN TOTAL,TP 8.3 g/dL (6.4-8.2)
[2023-06-16] MEDS ORDERED: Sodium Chloride 0.9% 1,000 ML IV ONE ×2 (02:05→02:06)
[2023-06-16] MEDS ORDERED: 50% Dextrose in Water 50 ML Syringe ONE (02:54)
[2023-06-16] MEDS ORDERED: 50% Dextrose in Water 50 ML Syringe IVPUSH STA ×2 (02:58→06:30)
[2023-06-16] MEDS: Morphine 4 MG/ML Syringe IVPUSH PRN ×2 (03:15→04:49)
[2023-06-16 03:17] LABS: APPEARANCE,URINE CLEAR; BILIRUBIN,URINE NEGATIVE (NEGATIVE); COLOR,URINE YELLOW; GLUCOSE,URINE 100 mg/dL (NEGATIVE); KETONES,URINE NEGATIVE (NEGATIVE); LEUKOCYTE ESTERASE,URINE NEGATIVE (NEGATIVE); NITRITE,URINE NEGATIVE (NEGATIVE); OCCULT BLOOD,URINE SMALL (NEGATIVE); PH,URINE 7.5 (5.0-8.0); PROTEIN,URINE 100 mg/dL (NEGATIVE); UROBILINOGEN,URINE 0.2 EU/dL (<2.0)
[2023-06-16 03:27] LABS: AMPHETAMINES SCREEN, URINE NEGATIVE (CUTOFF=500); BARBITURATE SCREEN,URINE NEGATIVE (CUTOFF=200); BENZODIAZEPINES SCREEN,URINE NEGATIVE (CUTOFF=150); BUPRENORPHINE SCREEN,URINE NEGATIVE (CUTOFF=10); METHADONE SCREEN, URINE NEGATIVE (CUTOFF=200); METHAMPHETAMINES SCREEN, URINE NEGATIVE (CUTOFF=500); OXYCODONE SCREEN,URINE NEGATIVE (CUT0FF=100); PCP SCREEN,URINE NEGATIVE (CUTOFF=25); THC SCREEN,URINE 20 NG/ML NEGATIVE (CUTOFF=50)
[2023-06-16 03:31] LABS: BACTERIA,URINE FEW (NEGATIVE); EPITHELIAL CELLS,URINE OCCASIONAL (NONE-FEW); WBC,URINE 0-2 (0-5/HPF)
[2023-06-16] MEDS ORDERED: Ondansetron 4 MG/2 ML SDV IVPUSH STA (04:50)
[2023-06-16] MEDS ORDERED: Ondansetron 4 MG/2 ML SDV IVPUSH ONE (05:01)
[2023-06-16] MEDS: hydrALAZINE 20 MG/ML SDV IVPUSH ONE ×2 (05:03→05:21)
[2023-06-16] MEDS ORDERED: Cyclobenzaprine 10 MG Tab PO ONE (05:21)
[2023-06-16] MEDS ORDERED: Dextrose 10% in Water 500 ML IV SCH (05:45)
[2023-06-16] MEDS ORDERED: Ondansetron 4 MG/2 ML SDV IVPUSH PRN (08:02)
[2023-06-16] MEDS ORDERED: Acetaminophen 325 MG Tab PO PRN (08:02)
[2023-06-16 08:29] LABS: HEMOGLOBIN A1C 7.8 %
[2023-06-16 08:32] LABS: TSH ULTRASENSITIVE 11.13 uIU/mL (0.36-3.74)
[2023-06-16] MEDS ORDERED: Glucagon,Human Recombinant 1 MG Vial IM PRN (10:36)
[2023-06-16] MEDS ORDERED: 50% Dextrose in Water 50 ML Syringe IVPUSH PRN ×2 (10:36→16:07)
[2023-06-16] MEDS: Sodium Chloride 0.9% 1,000 ML IV SCH ×2 (11:09→21:40)
[2023-06-16] MEDS: Metoprolol Tartrate 50 MG Tab PO SCH ×2 (12:20→20:16)
[2023-06-16] MEDS: Furosemide 40 MG Tab PO SCH (12:21)
[2023-06-16] MEDS: Insulin Aspart 100 Units/ML 3 ML Pen SUBCUT SCH ×2 (12:21→18:01)
[2023-06-16 14:19] LABS: T4 FREE 1.06 ng/dL (0.76-1.46)
[2023-06-16] MEDS ORDERED: Insulin Regular, Human 100 Units/ML 10 ML Vial SUBCUT ONE (16:07)
[2023-06-16] MEDS ORDERED: Rivaroxaban 15 MG Tab PO SCH (17:30)
[2023-06-16] MEDS ORDERED: Pramipexole 0.25 MG Tab PO SCH (21:00)
[2023-06-16] MEDS ORDERED: atorvaSTATin 40 MG Tab PO SCH (21:00)
[2023-06-16] MEDS ORDERED: Insulin Glargine,Hum.Rec.Anlog 100 UNIT/ML 3 ML Pen SUBCUT SCH (21:00)
[2023-06-17 05:53] LABS: BASOPHILS ABSOLUTE AUTO 0.03 K/uL (0.00-0.20); BASOPHILS PERCENT AUTO 0.4 % (0.0-1.0); EOSINOPHILS ABSOLUTE AUTO 0.11 K/uL (0.00-0.45); EOSINOPHILS PERCENT AUTO 1.3 % (0.0-6.0); HEMATOCRIT 36.7 % (42.0-52.0); HEMOGLOBIN 12.3 g/dL (14.0-18.0); IMMATURE GRAN ABSOLUTE AUTO 0.03 K/uL (0.00-0.05); IMMATURE GRAN PERCENT AUTO 0.4 % (0.0-0.4); MEAN CORPUSCULAR HGB CONC 33.5 g/dL (32.0-36.0); MEAN CORPUSCULAR VOLUME 92.4 fL (83.0-99.0); MEAN PLATELET VOLUME 10.4 fL (9.4-12.4); MONOCYTES ABSOLUTE AUTO 0.51 K/uL (0.00-0.80); MONOCYTES PERCENT AUTO 6.1 % (0.0-8.0); NEUTROPHILS ABSOLUTE AUTO 7.16 K/uL (1.80-7.70); NEUTROPHILS PERCENT AUTO 85.8 % (41.0-71.0); PLATELET COUNT,PLT 136 K/uL (150-400); RED BLOOD CELL COUNT 3.97 M/uL (4.52-5.90); WHITE BLOOD CELL COUNT,WBC 8.34 K/uL (3.9-11.3)
[2023-06-17 06:17] LABS: A/G RATIO 0.9 (0.9-1.6); ALBUMIN 2.8 g/dL (3.4-5.0); BILIRUBIN TOTAL 0.6 mg/dL (0.2-1.0); CALCIUM 8.5 mg/dL (8.5-10.1); CARBON DIOXIDE,CO2 24.2 mmol/L (21.0-32.0); CREATININE 1.8 mg/dL (0.8-1.3); EST CRCL DRUG DOSING (CG) 27.66 mL/min; POTASSIUM,K 4.1 mmol/L (3.5-5.1)
[2023-06-17] MEDS: Insulin Aspart 100 Units/ML 3 ML Pen SUBCUT SCH ×2 (07:49→10:50)
[2023-06-17 08:52] VITALS: BP 126/51; PULSE 62
[2023-06-17] MEDS: Metoprolol Tartrate 50 MG Tab PO SCH (08:54)
[2023-06-17] MEDS: Furosemide 40 MG Tab PO SCH (08:54)
== END 2023-06-17 12:55 | disposition home or self-care (01) ==
LOC: MW.ED 00:59 → MW.MS 06:38
PROVIDERS: ADMIT Internal Medicine; ATTEND Internal Medicine
DX: E16.2 Hypoglycemia, unspecified (principal); R06.02 Shortness of breath; R35.0 Frequency of micturition; I10 Essential (primary) hypertension; M54.50 Low back pain, unspecified; R60.0 Localized edema; R55 Syncope and collapse; I25.10 Atherosclerotic heart disease of native coronary artery without angina pectoris; E11.9 Type 2 diabetes mellitus without complications; Z95.1 Presence of aortocoronary bypass graft; Z86.73 Personal history of transient ischemic attack (TIA), and cerebral infarction without residual deficits; Z96.41 Presence of insulin pump (external) (internal); Z79.4 Long term (current) use of insulin; Z79.899 Other long term (current) drug therapy; Z88.8 Allergy status to other drugs, medicaments and biological substances
CPT/HCPCS: 36415; 51702; 70450; 71045; 71275; 72100; 74174; 80053; 80305; 81001; 82550; 82947; 83036; 83605; 83690; 83735; 84439; 84443; 84484; 85025; 85610; 93005; 96361; 96374; 96375; 96376; 97110; 97161; 97530; 99285; A9270; G0378; J0360; J1815; J2270; J2405; J3490; J7030; Q9967; 93010; 99284

== ENCOUNTER 2023-09-14 21:30 | Emergency (ER) | payer MEDICARE, BC ==
[2023-09-14 22:08] LABS: BASOPHILS ABSOLUTE AUTO 0.02 K/uL (0.00-0.20); BASOPHILS PERCENT AUTO 0.3 % (0.0-1.0); EOSINOPHILS ABSOLUTE AUTO 0.06 K/uL (0.00-0.45); HEMATOCRIT 34.6 % (42.0-52.0); HEMOGLOBIN 12.1 g/dL (14.0-18.0); IMMATURE GRAN ABSOLUTE AUTO 0.04 K/uL (0.00-0.05); IMMATURE GRAN PERCENT AUTO 0.7 % (0.0-0.4); LYMPHOCYTES ABSOLUTE AUTO 0.39 K/uL (1.00-4.80); LYMPHOCYTES PERCENT AUTO 6.5 % (24.0-44.0); MEAN CORPUSCULAR HEMOGLOBIN 31.3 pg (28.0-32.0); MEAN CORPUSCULAR VOLUME 89.6 fL (83.0-99.0); MEAN PLATELET VOLUME 10.2 fL (9.4-12.4); MONOCYTES ABSOLUTE AUTO 0.35 K/uL (0.00-0.80); MONOCYTES PERCENT AUTO 5.8 % (0.0-8.0); NEUTROPHILS ABSOLUTE AUTO 5.17 K/uL (1.80-7.70); NEUTROPHILS PERCENT AUTO 85.7 % (41.0-71.0); PLATELET COUNT,PLT 128 K/uL (150-400); RED BLOOD CELL COUNT 3.86 M/uL (4.52-5.90); WHITE BLOOD CELL COUNT,WBC 6.03 K/uL (3.9-11.3)
[2023-09-14] MEDS: HYDROmorphone 0.5 MG/0.5 ML Syringe IVPUSH ONE (22:11)
[2023-09-14 22:23] LABS: INR 1.23 (0.86-1.11)
[2023-09-14 22:32] LABS: A/G RATIO 1.1 (0.9-1.6); ALANINE AMINOTRANSFERASE,ALT 37 IU/L (14-63); ALBUMIN 3.5 g/dL (3.4-5.0); ALKALINE PHOSPHATASE 87 U/L (46-116); ASPARTATE AMNIOTRANSFERASE,AST 49 IU/L (15-37); BILIRUBIN TOTAL 0.5 mg/dL (0.2-1.0); BLOOD UREA NITROGEN,BUN 34 mg/dL (7.0-18.0); CALCIUM 9.5 mg/dL (8.5-10.1); CARBON DIOXIDE,CO2 25.9 mmol/L (21.0-32.0); CHLORIDE,CL 104 mmol/L (98-107); CREATININE 2.1 mg/dL (0.8-1.3); GLUCOSE RANDOM 68 mg/dL (74-106); LIPASE 13 U/L (16-77); MAGNESIUM 1.9 mg/dL (1.8-2.4); POTASSIUM,K 3.5 mmol/L (3.5-5.1); PROTEIN TOTAL,TP 6.7 g/dL (6.4-8.2); SODIUM,NA 142 mmol/L (136-148)
[2023-09-14 22:34] LABS: ESTIMATED GFR 32 mL/min (>60)
[2023-09-14] MEDS: Dextrose 5%-Lactated Ringers 1,000 ML IV STA (22:52)
[2023-09-14] MEDS: Sodium Chloride 0.9% 500 ML IV ONE (22:59)
[2023-09-15] MEDS: Iopamidol 755 MG/ML 500 ML Multipack Bottle IVPUSH ONE (00:08)
[2023-09-15 01:31] VITALS: BP 138/56; PULSE 63
== END 2023-09-15 01:30 | disposition home or self-care (01) ==
LOC: MW.ED 21:30
DX: M54.50 Low back pain, unspecified (principal); I10 Essential (primary) hypertension; E11.9 Type 2 diabetes mellitus without complications; Z95.5 Presence of coronary angioplasty implant and graft; Z86.73 Personal history of transient ischemic attack (TIA), and cerebral infarction without residual deficits; Z95.1 Presence of aortocoronary bypass graft; Z88.8 Allergy status to other drugs, medicaments and biological substances; Z79.4 Long term (current) use of insulin; Z79.899 Other long term (current) drug therapy; X50.0XXA Overexertion from strenuous movement or load, initial encounter; Y93.89 Activity, other specified
CPT/HCPCS: 36415; 71275; 74174; 80053; 82947; 83690; 83735; 84484; 85025; 85610; 85730; 93005; 96374; 99284; J1170; J7121; Q9967

== ENCOUNTER 2024-03-25 15:13 | Emergency (ER) | payer MEDICARE, BC ==
[2024-03-25] MEDS ORDERED: Sodium Chloride 0.9% 2.5 ML Syringe FLUSH PRN (15:35)
[2024-03-25 15:43] LABS: BASOPHILS ABSOLUTE AUTO 0.05 K/uL (0.00-0.20); BASOPHILS PERCENT AUTO 0.8 % (0.0-1.0); EOSINOPHILS ABSOLUTE AUTO 0.09 K/uL (0.00-0.45); EOSINOPHILS PERCENT AUTO 1.4 % (0.0-6.0); HEMATOCRIT 45.3 % (42.0-52.0); HEMOGLOBIN 15.1 g/dL (14.0-18.0); IMMATURE GRAN ABSOLUTE AUTO 0.09 K/uL (0.00-0.05); IMMATURE GRAN PERCENT AUTO 1.4 % (0.0-0.4); LYMPHOCYTES ABSOLUTE AUTO 0.57 K/uL (1.00-4.80); MEAN CORPUSCULAR HEMOGLOBIN 30.4 pg (28.0-32.0); MEAN CORPUSCULAR HGB CONC 33.3 g/dL (32.0-36.0); MEAN CORPUSCULAR VOLUME 91.1 fL (83.0-99.0); MEAN PLATELET VOLUME 10.8 fL (9.4-12.4); MONOCYTES ABSOLUTE AUTO 0.48 K/uL (0.00-0.80); MONOCYTES PERCENT AUTO 7.6 % (0.0-8.0); NEUTROPHILS ABSOLUTE AUTO 5.05 K/uL (1.80-7.70); NEUTROPHILS PERCENT AUTO 79.8 % (41.0-71.0); PLATELET COUNT,PLT 150 K/uL (150-400); RED BLOOD CELL COUNT 4.97 M/uL (4.52-5.90); WHITE BLOOD CELL COUNT,WBC 6.33 K/uL (3.9-11.3)
[2024-03-25] MEDS: fentaNYL 50 MCG/ML SDV IVPUSH ONE (15:48)
[2024-03-25] MEDS: Sodium Chloride 0.9% 10 ML Syringe FLUSH PRN (15:48)
[2024-03-25] MEDS: Ondansetron 4 MG/2 ML SDV IVPUSH ONE (15:48)
[2024-03-25 15:57] LABS: A/G RATIO 1.1 (0.9-1.6); ALANINE AMINOTRANSFERASE,ALT 31 IU/L (14-63); ALKALINE PHOSPHATASE 66 U/L (46-116); ASPARTATE AMNIOTRANSFERASE,AST 22 IU/L (15-37); BILIRUBIN TOTAL 0.5 mg/dL (0.2-1.0); BLOOD UREA NITROGEN,BUN 38 mg/dL (7.0-18.0); CALCIUM 9.6 mg/dL (8.5-10.1); CARBON DIOXIDE,CO2 29.9 mmol/L (21.0-32.0); CHLORIDE,CL 102 mmol/L (98-107); CREATININE 2.3 mg/dL (0.8-1.3); EST CRCL DRUG DOSING (CG) 21.65 mL/min; ETHANOL BLOOD MEDICAL <3 mg/dL; GLUCOSE RANDOM 244 mg/dL (74-106); LIPASE 17 U/L (16-77); POTASSIUM,K 3.8 mmol/L (3.5-5.1); PROTEIN TOTAL,TP 7.6 g/dL (6.4-8.2); SODIUM,NA 138 mmol/L (136-148)
[2024-03-25 16:00] LABS: ESTIMATED GFR 29 mL/min (>60)
[2024-03-25] MEDS: Iopamidol 755 MG/ML 500 ML Multipack Bottle IVPUSH STA (16:27)
[2024-03-25 17:46] LABS: APPEARANCE,URINE CLEAR; BILIRUBIN,URINE NEGATIVE (NEGATIVE); COLOR,URINE YELLOW; GLUCOSE,URINE >=1000 mg/dL (NEGATIVE); KETONES,URINE NEGATIVE (NEGATIVE); LEUKOCYTE ESTERASE,URINE NEGATIVE (NEGATIVE); NITRITE,URINE NEGATIVE (NEGATIVE); OCCULT BLOOD,URINE TRACE-INTACT (NEGATIVE); PROTEIN,URINE 30 mg/dL (NEGATIVE); UROBILINOGEN,URINE 0.2 EU/dL (<2.0)
[2024-03-25 17:58] LABS: BACTERIA,URINE NOT SEEN (NEGATIVE); EPITHELIAL CELLS,URINE NOT SEEN (NONE-FEW); RBC,URINE 0-1 (0-2/HPF); WBC,URINE 0-1 (0-5/HPF)
[2024-03-25] MEDS: Acetaminophen/HYDROcodone 325-5 MG Tab PO ONE (18:25)
[2024-03-25 18:30] VITALS: BP 216/84; PULSE 72
== END 2024-03-25 18:28 | disposition home or self-care (01) ==
LOC: MW.ED 15:13
DX: S22.41XA Multiple fractures of ribs, right side, initial encounter for closed fracture (principal); S09.90XA Unspecified injury of head, initial encounter; I10 Essential (primary) hypertension; Z86.73 Personal history of transient ischemic attack (TIA), and cerebral infarction without residual deficits; E11.9 Type 2 diabetes mellitus without complications; Z86.16 Personal history of COVID-19; Z95.5 Presence of coronary angioplasty implant and graft; Z79.899 Other long term (current) drug therapy; Z79.4 Long term (current) use of insulin; V86.55XA Driver of 3- or 4- wheeled all-terrain vehicle (ATV) injured in nontraffic accident, initial encounter
CPT/HCPCS: 36415; 70450; 71260; 72125; 73030; 74177; 80053; 80307; 81001; 83690; 85025; 93005; 96374; 96375; 99284; A9270; J2405; J3010; J3490; Q9967; 93010